=== PATIENT | female | born 1950 | race Caucasian/White ===

== ENCOUNTER 2016-10-11 01:24 | Inpatient (IN) | payer OTHER, MEDICARE ==
[2016-10-11] VITALS (8 sets, daily range): BP systolic 103–191; BP diastolic 60–100; PULSE 72–97; RESP 16–26; TEMP 96.9–98.4; O2SAT 93–96
[~2016-10-11] VITALS: Ht 157.5 cm; Wt 68.4 kg
[~2016-10-11 01:24] MED LIST: ACET1CAP18 PO; ALBU6.7H INH; ALPR.25 PO; ASPI1TAB69 PO; HYOS0.128 PO; LEVO.05 PO; OXYGENTANK NAS.CANULA; PRED5PAK PO; UMEC1AER INH; ZITH250T PO; ZOLO100T PO
[2016-10-11] MEDS ORDERED: SODIUM CHLORIDE 0.9% FLUSH 10 ML FLUSH IVF PRN ×3 (01:45→03:15)
[2016-10-11] MEDS: RESP: ALBUTEROL 2.5 MG/IPRATROPIUM 0.5 MG NEB (SCH) INH ×2 (01:54→02:16)
--- NOTE | 2016-10-11 01:58 | PD ---
HPI Chief Complaint: GI Complaint Time Seen by Provider: 01:40 Travel History International Travel<30 days: No Contact w/Intl Traveler<30days: No Traveled to known affect area: No History of Present Illness HPI 66-year-old female presents to the emergency department by private transportation for complaint of rectal bleeding. Patient reportedly noted blood on her bed clothing as well as her bedding and onto the floor reportedly noted with ambulation. No rectal pain no abdominal pain reported. Patient does have significant COPD and does complain of shortness of breath. Patient is supposed to be on supplemental oxygen at all times for presents without nasal cannula supplemental oxygen. No report of near-syncope or syncope chest pain sweats nausea vomiting or abdominal pain. No recent febrile illness. PFSH Past Medical History Narrative Medical PE COPD hypertension hypothyroidism sinus surgery, positive alcohol use, nursing notes reviewed Hx Anticoagulant Therapy: Yes (Baby aspirin) Arthritis: Yes (DJD) Anxiety: Yes Depression: No Cancer: No Cardiovascular Problems: Yes ( recent P.E. left lung) Chemotherapy: No COPD: Yes Diabetes: No Diminished Hearing: No Endocrine: No Hypertension: Yes Immune Disorder: No Implanted Vascular Access Dvce: No Musculoskeletal: Yes Neurologic: No Psychiatric: No Reproductive: No Respiratory: Yes (COPD) Radiation Therapy: No Thyroid Disease: Yes PNEUMOCCOCAL Vaccine (Year): 1 Menopausal: Yes : 2 Para: 2 Past Surgical History Neurologic Surgery: Yes (SINUS) Other Surgery: Yes (SINUS SURGERY; FATTY TUMOR REMOVED FROM LEFT BREAST) Social History Alcohol Use: Yes (BLOODY SAL AT NIGHT) Tobacco Use: No (PT STOPPED 9 DAYS AGO) Substance Use: No Allergies-Medications (Allergen,Severity, Reaction): Coded Allergies: Codeine (Verified Adverse Reaction, Mild, NAUSEA, 10/11/16) Reported Meds & Prescriptions Reported Meds & Active Scripts Active Prednisone (21) 5 mg tab Dose Pack (Prednisone) 5 Mg Dspk 5 Mg PO DIRECTED Oxygen tank (Oxygen) 1 Ea Tank 2 Liter CRISTA.CANULA CONTINUOUS Oxygen Concentrator Portable Gaseous 2 L/min via Nasal Cannula Continuous For 99 months Xanax (Alprazolam) 0.25 Mg Tab 0.25 Mg PO Q8H PRN Reported Claritin (Loratadine) 10 Mg Cap 10 Mg PO DAILY Naprosyn (Naproxen) 500 Mg Tab 500 Mg PO DAILY Aspirin 81 Mg Chew 81 Mg CHEW DAILY Proventil Hfa 6.7 GM Inh (Albuterol Sulfate) 90 Mcg/Act Aer 2 Puff INH Q4H PRN Anoro Ellipta Inh (Umeclidinium/Vilanterol) 62.5-25 Mcg/Act Aero 1 Puff INH DAILY Zoloft (Sertraline HCl) 100 Mg Tab 100 Mg PO DAILY Synthroid (Levothyroxine Sodium) 50 Mcg Tab 50 Mcg PO DAILY Review of Systems Except as stated in HPI: all other systems reviewed are Neg General / Constitutional: No: Fever, Chills HENT: No: Congestion Cardiovascular: No: Chest Pain or Discomfort Respiratory: Positive: Cough, Shortness of Breath, Wheezing Gastrointestinal: Positive: Hematochezia, No: Nausea, Vomiting, Abdominal Pain Genitourinary: No: Dysuria, Flank Pain Musculoskeletal: No: Myalgias, Arthralgias Skin: No Rash Neurologic: Positive: Weakness, No: Dizziness, Syncope, Focal Abnormalities, Coordination Problem Psychiatric: Positive: Anxiety Hematologic/Lymphatic: Positive: Easy Bruising Physical Exam Narrative GENERAL: Well-developed well-nourished female in mild respiratory distress SKIN: Warm and dry. HEAD: Normocephalic. EYES: No scleral icterus. No injection or drainage. NECK: Supple, trachea midline. No JVD or lymphadenopathy. CARDIOVASCULAR: Regular rate and rhythm without murmurs, gallops, or rubs. RESPIRATORY: Breath sounds equal bilaterally with diffuse wheezing. No accessory muscle use. GASTROINTESTINAL: Abdomen soft, non-tender, nondistended. Rectal exam: Multiple prolapsed non-thrombosed hemorrhoids scant amount of fresh heme no fissure no abrasion no tear stool in rectal vault MUSCULOSKELETAL: No cyanosis, or edema. BACK: Nontender without obvious deformity. No CVA tenderness. Data Data Last Documented VS Vital Signs Date Time Temp Pulse Resp B/P Pulse Ox O2 Delivery O2 Flow Rate FiO2 10/11/16 02:01 93 Nasal Cannula 2.50 10/11/16 01:50 98.4 26 10/11/16 01:50 72 103/65 Orders Complete Blood Count With Diff (10/11/16 01:40) Comprehensive Metabolic Panel (10/11/16 01:40) B-Type Natriuretic Peptide (10/11/16 01:40) Act Partial Throm Time (Ptt) (10/11/16 01:40) Prothrombin Time / Inr (Pt) (10/11/16 01:40) Magnesium (Mg) (10/11/16 01:40) Ckmb (Isoenzyme) Profile (10/11/16 01:40) Troponin I (10/11/16 01:40) Urinalysis - C+S If Indicated (10/11/16 01:40) Iv Access Insert/Monitor (10/11/16 01:40) Electrocardiogram (10/11/16 01:40) Ecg Monitoring (10/11/16 01:40) Oximetry (10/11/16 01:40) Oxygen Administration (10/11/16 01:40) Chest, Single Ap (10/11/16 01:40) Sodium Chloride 0.9% Flush (Ns Flush) (10/11/16 01:45) Albuterol-Ipratropium Neb (Duoneb Neb) (10/11/16 01:45) Alcohol (Ethanol) (10/11/16 01:40) Type And Screen (10/11/16 01:40) Sodium Chloride 0.9% Flush (Ns Flush) (10/11/16 01:45) Pantoprazole Inj (Protonix Inj) (10/11/16 02:30) Methylprednisolone So Succ Inj (Solumedr (10/11/16 02:30) CKMB (10/11/16 02:00) CKMB% (10/11/16 02:00) Thiamine Inj (Thiamine Inj) (10/11/16 03:00) Albuterol-Ipratropium Neb (Duoneb Neb) (10/11/16 03:00) Alprazolam (Xanax) (10/11/16 03:15) Aspirin Chew (Aspirin Chew) (10/11/16 09:00) Levothyroxine (Synthroid) (10/11/16 09:00) Naproxen (Naprosyn) (10/11/16 09:00) Sertraline (Zoloft) (10/11/16 09:00) Admit Order (Ed Use Only) (10/11/16 ) ^ Saline Lock (10/11/16 03:02) Resp Oxygen Crista C Titrat 1-4 L (10/11/16 ) Notify Dr: Other (10/11/16 03:02) Sodium Chloride 0.9% Flush (Ns Flush) (10/11/16 09:00) Sodium Chloride 0.9% Flush (Ns Flush) (10/11/16 03:15) Consult Gastroenterology (10/11/16 ) Methylprednisolone So Succ Inj (Solumedr (10/11/16 06:00) Albuterol-Ipratropium Neb (Duoneb Neb) (10/11/16 08:00) Albuterol-Ipratropium Neb (Duoneb Neb) (10/11/16 03:15) Alcohol Withdrawal Asmt-Ciwa ONCE (10/11/16 03:04) Flumazenil Inj (Romazicon Inj) (10/11/16 03:15) Lorazepam (Ativan) (10/11/16 03:15) Lorazepam Inj (Ativan Inj) (10/11/16 03:15) Lorazepam (Ativan) (10/11/16 03:15) Lorazepam Inj (Ativan Inj) (10/11/16 03:15) Lorazepam Inj (Ativan Inj) (10/11/16 03:15) Lorazepam Inj (Ativan Inj) (10/11/16 03:15) Albuterol Neb (Albuterol Neb) (10/11/16 03:15) Labs Laboratory Tests Test 10/11/16 10/11/16 02:00 02:30 White Blood Count 9.5 TH/MM3 Red Blood Count 4.22 MIL/MM3 Hemoglobin 13.8 GM/DL Hematocrit 41.7 % Mean Corpuscular Volume 98.6 FL Mean Corpuscular Hemoglobin 32.6 PG Mean Corpuscular Hemoglobin 33.1 % Concent Red Cell Distribution Width 13.4 % Platelet Count 222 TH/MM3 Mean Platelet Volume 8.7 FL Neutrophils (%) (Auto) 56.6 % Lymphocytes (%) (Auto) 25.9 % Monocytes (%) (Auto) 9.9 % Eosinophils (%) (Auto) 7.0 % Basophils (%) (Auto) 0.6 % Neutrophils # (Auto) 5.3 TH/MM3 Lymphocytes # (Auto) 2.5 TH/MM3 Monocytes # (Auto) 0.9 TH/MM3 Eosinophils # (Auto) 0.7 TH/MM3 Basophils # (Auto) 0.1 TH/MM3 CBC Comment DIFF FINAL Differential Comment Prothrombin Time 10.5 SEC Prothromb Time International 1.0 RATIO Ratio Activated Partial 32.4 SEC Thromboplast Time Sodium Level 142 MEQ/L Potassium Level 3.5 MEQ/L Chloride Level 104 MEQ/L Carbon Dioxide Level 29.1 MEQ/L Anion Gap 9 MEQ/L Blood Urea Nitrogen 20 MG/DL Creatinine 0.62 MG/DL Estimat Glomerular Filtration 96 ML/MIN Rate Random Glucose 96 MG/DL Calcium Level 9.4 MG/DL Magnesium Level 1.7 MG/DL Total Bilirubin 0.2 MG/DL Aspartate Amino Transf 16 U/L (AST/SGOT) Alanine Aminotransferase 17 U/L (ALT/SGPT) Alkaline Phosphatase 91 U/L Total Creatine Kinase 154 U/L Creatine Kinase MB 3.1 NG/ML Troponin I LESS THAN 0.02 NG/ML Total Protein 8.0 GM/DL Albumin 4.0 GM/DL Ethyl Alcohol Level 234 MG/DL Urine Color STRAW Urine Turbidity CLEAR Urine pH 5.5 Urine Specific [place] 1.004 Urine Protein NEG mg/dL Urine Glucose (UA) NEG mg/dL Urine Ketones NEG mg/dL Urine Occult Blood LARGE Urine Nitrite NEG Urine Bilirubin NEG Urine Leukocyte Esterase TRACE Urine RBC 0-3 /hpf Urine WBC 0-2 /hpf Urine Squamous Epithelial 0-5 /hpf Cells Urine Bacteria RARE /hpf Microscopic Urinalysis Comment CULT NOT INDICATED MDM Medical Decision Making Medical Screen Exam Complete: Yes Emergency Medical Condition: Yes Medical Record Reviewed: Yes Interpretation(s) EKG normal sinus rhythm rate [address] elevation or injury pattern age- indeterminate QS septally alcohol: 234, elevated CBC & BMP Diagram 10/11/16 02:00 Vital Signs Date Time Temp Pulse Resp B/P Pulse Ox O2 Delivery O2 Flow Rate FiO2 10/11/16 02:01 93 Nasal Cannula 2.50 10/11/16 01:50 98.4 26 10/11/16 01:50 95 Nasal Cannula 2 10/11/16 01:50 98.4 72 16 103/65 95 Nasal Cannula 2 10/11/16 01:50 72 26 95 Nasal Cannula 2 10/11/16 01:50 98.4 72 26 103/65 95 Nasal Cannula 2 ck: 154, not elevated troponin I: Less than 0.02, not elevated Differential Diagnosis Dyspnea, exacerbation COPD, anemia, GI bleed, AVM, ACS, pneumonia, hemorrhoidal bleeding, alcohol use, electrolyte disturbance Narrative Course Patient report of fresh rectal bleeding may be related to lower GI tract bleeding including prolapsed hemorrhoids; patient with exacerbation of COPD requiring updraft treatments 2 due to diffuse expiratory wheezing: Stat hemoglobin hematocrit ordered for report of large amount of blood loss rectally at home. EKG shows no acute injury pattern change. Serum alcohol level will be checked and patient will be administered thiamine. PCP: Dr Quinn; GI: Dr Freeman Critical Care Narrative Aggregate critical care time was 35 minutes. Time to perform other separately billable procedures was not included in the critical care time. My time did not include minutes spent treating any other patients simultaneously or on activities that did not directly contribute to the patient's treatment. The services I provided to this patient were to treat and/or prevent clinically significant deterioration that could result in: Respiratory failure, hemorrhage , I provided critical care services requiring my management, as noted below: Chart data review, documentation time, medication orders and management, vital sign assessments/reviewing monitor data, ordering and reviewing lab tests, ordering and interpreting/reviewing x-rays and diagnostic studies, care of the patient and discussion of the patient with the admitting physicians. Procedures EKG Prior to Arrival: No HemaPrompt Point of Care Internal Pos. & Neg. Controls: Passed Fecal Specimen Occult Blood: Positive Physician Communication Physician Communication call placed to [facility] service; discussed with Dr Driver requesting INPT admission Diagnosis Primary Impression: COPD exacerbation Additional Impressions: Rectal bleeding Alcohol use Hemorrhoids Qualified Code: K64.9 - Hemorrhoids, unspecified hemorrhoid type Admitting Information Admitting Physician Requests: Admit Sana Lopez MD Oct 11, 2016 01:58
--- NOTE | 2016-10-11 02:08 | RADHPO ---
EXAM DATE/TIME: 10/11/2016 01:43 [facility] COMPARISON: CHEST SINGLE AP, April 21, 2016, 21:31. INDICATIONS : Shortness of breath. MEDICAL HISTORY : Hypertension. Chronic obstructive pulmonary disease. Pulmonary embolism. SURGICAL HISTORY : None. ENCOUNTER: Initial ACUITY: 1 day PAIN SCORE: 0/10 LOCATION: Bilateral chest FINDINGS: The lungs are clear without infiltrate, nodule, or mass. There is no appreciable pleural effusion fo r technique. Heart and mediastinum are unremarkable. CONCLUSION: No acute cardiopulmonary disease. Raúl Stover MD on October 11, 2016 at 2:05 Board Certified Radiologist. This report was verified electronically.
[2016-10-11 02:13] LABS: AUTOMATED NEUTROPHIL # 5.3 TH/MM3 (1.8-7.7); BASOPHIL # 0.1 TH/MM3 (0-0.2); BASOPHIL % 0.6 % (0.0-2.0); EOSINOPHIL # 0.7 TH/MM3 (0-0.4); HEMATOCRIT 41.7 % (35.0-46.0); HEMO FLAGS DIFF FINAL; LYMPH % 25.9 % (9.0-44.0); LYMPHOCYTE # 2.5 TH/MM3 (1.0-4.8); MEAN CELL VOLUME 98.6 FL (80.0-100.0); MEAN CORPUSCULAR HEMOGLOBIN 32.6 PG (27.0-34.0); MEAN CORPUSCULAR HGB CONC 33.1 % (32.0-36.0); MONO % 9.9 % (0.0-8.0); NEUT % 56.6 % (16.0-70.0); PLATELET COUNT 222 TH/MM3 (150-450); RED BLOOD COUNT 4.22 MIL/MM3 (4.00-5.30); RED CELL DISTRIBUTION WIDTH 13.4 % (11.6-17.2); WHITE BLOOD COUNT 9.5 TH/MM3 (4.0-11.0)
[2016-10-11] MEDS ORDERED: NAPR500 PO (02:19)
[2016-10-11] MEDS ORDERED: CLAR10CA3 PO (02:19)
[2016-10-11] MEDS ORDERED: ASPI81CH CHEW (02:19)
[2016-10-11 02:28] LABS: CHLORIDE 104 MEQ/L (98-107); POTASSIUM 3.5 MEQ/L (3.5-5.1); SODIUM (NA) 142 MEQ/L (136-145)
[2016-10-11] MEDS ORDERED: methylPREDNISolone SOD SUCC 125 MG/2 ML VIAL IV PUSH ONE (02:30)
[2016-10-11] MEDS ORDERED: PANTOPRAZOLE SODIUM 40 MG VIAL IV PUSH ONE (02:30)
[2016-10-11 02:32] LABS: ANION GAP 9 MEQ/L (5-15); BICARBONATE 29.1 MEQ/L (21.0-32.0); BLOOD UREA NITROGEN 20 MG/DL (7-18); MAGNESIUM 1.7 MG/DL (1.5-2.5)
[2016-10-11 02:33] LABS: APTT (PATIENT) 32.4 SEC (24.3-30.1); PROTHROMBIN TIME - PATIENT 10.5 SEC (9.8-11.6)
[2016-10-11 02:35] LABS: ALT (GPT) 17 U/L (10-53); AST (GOT) 16 U/L (15-37); GLOMERULAR FILTRATION RATE 96 ML/MIN (>89)
[2016-10-11 02:36] LABS: TOTAL BILIRUBIN ADULT 0.2 MG/DL (0.2-1.0)
[2016-10-11 02:37] LABS: ALKALINE PHOSPHATASE 91 U/L (45-117); CREATINE KINASE 154 U/L (26-192)
[2016-10-11 02:38] LABS: BLOOD, URINE LARGE (NEG); GLUCOSE,URINE NEG (NEG); KETONE, URINE NEG (NEG); NITRITE,URINE NEG (NEG); PH, URINE 5.5 (5.0-8.5)
[2016-10-11 02:52] LABS: RBC, URINE 0-3 /hpf (0-3); URINE COLOR STRAW (YELLW/STRAW); WBC, URINE 0-2 /hpf (0-5)
[2016-10-11 02:54] LABS: BACTERIA, URINE RARE /hpf; SQUAMOUS EPITHELIAL CELL URINE 0-5 /hpf (0-5)
[2016-10-11 02:55] LABS: COMMENT (UR) CULT NOT INDICATED; CULTURE IF INDICATED CULT NOT INDICATED
[2016-10-11] MEDS ORDERED: RESP: ALBUTEROL 2.5 MG/IPRATROPIUM 0.5 MG NEB (SCH) NEB ONE (03:00)
[2016-10-11] MEDS ORDERED: THIAMINE INJ 100 MG in SODIUM CHLORIDE 0.9% INJ 100 ML IV ONE (03:00)
[2016-10-11 03:02] LABS: CKMB 3.1 NG/ML (0.5-3.6)
[2016-10-11] MEDS ORDERED: FLUMAZENIL 0.5 MG/5 ML VIAL IV PUSH PRN ×2 (03:15)
[2016-10-11] MEDS ORDERED: LORazepam 2 MG/ML VIAL IV PUSH PRN ×8 (03:15)
[2016-10-11] MEDS ORDERED: ALPRAZolam 0.25 MG TAB PO PRN (03:15)
[2016-10-11] MEDS ORDERED: RESP: ALBUTEROL 2.5 MG/3 ML NEB (PRN) NEB (03:15)
[2016-10-11] MEDS ORDERED: LORazepam 1 MG TAB PO PRN ×2 (03:15)
[2016-10-11] MEDS ORDERED: RESP: ALBUTEROL 2.5 MG/IPRATROPIUM 0.5 MG NEB (PRN) NEB (03:15)
[2016-10-11] MEDS ORDERED: LORazepam 2 MG TAB PO PRN ×2 (03:15)
[2016-10-11] MEDS ORDERED: SODIUM CHLORIDE 0.9% FLUSH 10 ML FLUSH IV FLUSH PRN (03:15)
[2016-10-11] MEDS ORDERED: ONDANSETRON HCL 4 MG/2 ML VIAL IV PRN (03:15)
[2016-10-11] MEDS ORDERED: PANTOPRAZOLE SODIUM 40 MG VIAL IV PUSH SCH (05:00)
[2016-10-11] MEDS ORDERED: methylPREDNISolone SOD SUCC 40 MG/1 ML VIAL IV PUSH SCH (06:00)
[2016-10-11] MEDS ORDERED: LEVOTHYROXINE SODIUM 50 MCG TAB PO SCH (06:00)
[2016-10-11 07:22] LABS: AUTOMATED NEUTROPHIL # 5.4 TH/MM3 (1.8-7.7); BASOPHIL % 0.4 % (0.0-2.0); EOSINOPHIL # 0.1 TH/MM3 (0-0.4); HEMATOCRIT 37.9 % (35.0-46.0); HEMO FLAGS DIFF FINAL; LYMPH % 7.5 % (9.0-44.0); LYMPHOCYTE # 0.4 TH/MM3 (1.0-4.8); MEAN CELL VOLUME 97.1 FL (80.0-100.0); MEAN CORPUSCULAR HEMOGLOBIN 32.1 PG (27.0-34.0); MONO % 1.5 % (0.0-8.0); NEUT % 89.6 % (16.0-70.0); PLATELET COUNT 217 TH/MM3 (150-450); RED BLOOD COUNT 3.91 MIL/MM3 (4.00-5.30)
[2016-10-11] MEDS: RESP: ALBUTEROL 2.5 MG/IPRATROPIUM 0.5 MG NEB (SCH) NEB ×3 (07:36→15:36)
--- NOTE | 2016-10-11 08:17 | HHI.HP ---
[facility] Primary Care Physician Kailey Quinn MD Admission Diagnosis Exac COPD; rectal bleeding; alcohol use/ingestion Diagnoses: (1) Chronic obstructive pulmonary disease (2) Rectal bleeding Chief Complaint: Dyspnea, rectal bleeding Travel History International Travel<30 Days: No Contact w/Intl Traveler <30 Da: No Traveled to Known Affected Are: No History of Present Illness The patient is a 66-year-old female with history of COPD on chronic home oxygen who presented to the emergency department with worsening shortness of breath over the last few days. She states that she has been using her oxygen intermittently, mostly at night. She uses 2.5 L per nasal cannula. She states that she does have oxygen at home and does have a portable oxygen tank, which she did not bring with her to the hospital. She also reports that over the past couple days she has had bright red blood per rectum. She has had this in the past. She used to see a GI physician, but has not seen him in a number of years. She reports cough that is productive of sputum in the mornings, but nonproductive the rest of the day. Denies fever, chills, night sweats. States that she does feel better this morning. Review of Systems Constitutional: DENIES: Fever, Chills, Night Sweats Eyes: DENIES: Blurred vision, Vision loss Ears, nose, mouth, throat: DENIES: Hearing loss Respiratory: COMPLAINS OF: Cough, Sputum production, Shortness of breath, DENIES: Wheezing Cardiovascular: DENIES: Chest pain, Palpitations, Dyspnea on Exertion, Lower Extremity Edema Gastrointestinal: DENIES: Abdominal pain, Constipation, Diarrhea, Nausea, Vomiting Genitourinary: DENIES: Urinary frequency, Urinary incontinence, Urgency, Hematuria, Dysuria, Nocturia Musculoskeletal: DENIES: Joint pain, Muscle aches Integumentary: DENIES: Pruritus, Rash Hematologic/lymphatic: DENIES: Bruising Neurologic: DENIES: Headache Past Family Social History Past Medical History Chronic obstructive pulmonary disease Arthritis History of pulmonary emboli Past Surgical History Tubal ligation Right hip replacement Allergies: Coded Allergies: Codeine (Verified Adverse Reaction, Mild, NAUSEA, 10/11/16) Family History Father had lung cancer. Social History The patient has been smoking 1 pack per day for many years. She has been trying to quit smoking and has recently started using nicotine patch. She states that her still smokes. She reports that over the past month she has been drinking "heavily". Denies illicit drug use. Physical Exam Vital Signs Vital Signs Date Time Temp Pulse Resp B/P Pulse Ox O2 Delivery O2 Flow Rate FiO2 10/11/16 04:14 96.9 83 20 119/78 94 10/11/16 03:17 81 24 105/60 96 Nasal Cannula 2 10/11/16 03:00 67 24 95 2 10/11/16 02:01 93 Nasal Cannula 2.50 10/11/16 01:50 98.4 26 10/11/16 01:50 95 Nasal Cannula 2 10/11/16 01:50 98.4 72 16 103/65 95 Nasal Cannula 2 10/11/16 01:50 72 26 95 Nasal Cannula 2 10/11/16 01:50 98.4 72 26 103/65 95 Nasal Cannula 2 Physical Exam GENERAL: Elderly female in no acute distress. HEENT: Normocephalic, atraumatic. Pupils equal, round and reactive. Extraocular movements intact. No scleral icterus. No injection or drainage. Oropharynx is clear. Mucous membranes are moist. Poor dentition. CARDIOVASCULAR: Regular rate and rhythm without murmurs, gallops, or rubs. RESPIRATORY: Diffuse wheeze. Breathing is non-labored. GASTROINTESTINAL: Abdomen soft, non-tender, nondistended. EXTREMITIES: No lower extremity edema. No calf tenderness. PSYCH: Alert and oriented x 3. Laboratory Laboratory Tests Test 10/11/16 10/11/16 10/11/16 02:00 02:30 07:10 White Blood Count 9.5 6.0 Red Blood Count 4.22 3.91 Hemoglobin 13.8 12.5 Hematocrit 41.7 37.9 Mean Corpuscular Volume 98.6 97.1 Mean Corpuscular Hemoglobin 32.6 32.1 Mean Corpuscular Hemoglobin 33.1 33.0 Concent Red Cell Distribution Width 13.4 14.0 Platelet Count 222 217 Mean Platelet Volume 8.7 8.8 Neutrophils (%) (Auto) 56.6 89.6 Lymphocytes (%) (Auto) 25.9 7.5 Monocytes (%) (Auto) 9.9 1.5 Eosinophils (%) (Auto) 7.0 1.0 Basophils (%) (Auto) 0.6 0.4 Neutrophils # (Auto) 5.3 5.4 Lymphocytes # (Auto) 2.5 0.4 Monocytes # (Auto) 0.9 0.1 Eosinophils # (Auto) 0.7 0.1 Basophils # (Auto) 0.1 0.0 CBC Comment DIFF FINAL DIFF FINAL Differential Comment Prothrombin Time 10.5 Prothromb Time International 1.0 Ratio Activated Partial 32.4 Thromboplast Time Sodium Level 142 Potassium Level 3.5 Chloride Level 104 Carbon Dioxide Level 29.1 Anion Gap 9 Blood Urea Nitrogen 20 Creatinine 0.62 Estimat Glomerular Filtration 96 Rate Random Glucose 96 Calcium Level 9.4 Phosphorus Level 3.2 Magnesium Level 1.7 Total Bilirubin 0.2 Aspartate Amino Transf 16 (AST/SGOT) Alanine Aminotransferase 17 (ALT/SGPT) Alkaline Phosphatase 91 Total Creatine Kinase 154 Creatine Kinase MB 3.1 Troponin I LESS THAN 0.02 B-Type Natriuretic Peptide 40 Total Protein 8.0 Albumin 4.0 Ethyl Alcohol Level 234 Blood Type O POSITIVE Antibody Screen NEGATIVE Blood Bank Comment Urine Color STRAW Urine Turbidity CLEAR Urine pH 5.5 Urine Specific [place] 1.004 Urine Protein NEG Urine Glucose (UA) NEG Urine Ketones NEG Urine Occult Blood LARGE Urine Nitrite NEG Urine Bilirubin NEG Urine Leukocyte Esterase TRACE Urine RBC 0-3 Urine WBC 0-2 Urine Squamous Epithelial 0-5 Cells Urine Bacteria RARE Microscopic Urinalysis Comment CULT NOT INDICATED Result Diagram: 10/11/16 0710 10/11/16 0200 Imaging Last Impressions Chest X-Ray 10/11/16 0140 Signed Impressions: Service Date/Time: Tuesday, October 11, 2016 01:43 - CONCLUSION: No acute cardiopulmonary disease. Raúl Stover MD Assessment and Plan Problem List: (1) Rectal bleeding ICD Code: K62.5 Status: Acute (2) Tobacco abuse ICD Code: Z72.0 Status: Chronic (3) Chronic obstructive pulmonary disease ICD Code: J44.9 Status: Chronic Assessment and Plan 1. Rectal bleeding: Patient's hemoglobin has remained stable. Gastroenterology consultation is pending. Likely secondary to hemorrhoids. 2. COPD with mild exacerbation: Patient is on chronic home oxygen, but only uses it intermittently. She has been referred by her PCP to a professor of languages, but has not yet made an appointment. Oxygen saturation stable on 2 L nasal cannula. Continue bronchodilators, steroids, supplemental oxygen. 3. Alcohol abuse: Patient reports drinking heavily for the past month or so. Continue thiamine supplementation. Monitor for withdrawal symptoms. [facility] protocol ordered. 4. Hypothyroidism: Continue Synthroid. 5. DVT prophylaxis: ANNMARIE Art. Awaiting gastroenterology recommendations regarding rectal bleed. If oxygen stays stable on 2 L per nasal cannula, and patient is cleared for discharge by GI, will consider discharge home later today. Triston Tipton MD Oct 11, 2016 08:17
[2016-10-11] MEDS ORDERED: NAPROXEN 500 MG TAB PO SCH (09:00)
[2016-10-11] MEDS ORDERED: FOLIC ACID 1 MG TAB PO SCH (09:00)
[2016-10-11] MEDS ORDERED: MULTIVITAMINS/MINERALS THERAPEUTIC TAB PO SCH (09:00)
[2016-10-11] MEDS ORDERED: SERTRALINE HCL 100 MG TAB PO SCH (09:00)
[2016-10-11] MEDS ORDERED: ASPIRIN 81 MG CHEW TAB CHEW SCH (09:00)
[2016-10-11] MEDS ORDERED: SODIUM CHLORIDE 0.9% FLUSH 10 ML FLUSH IV FLUSH SCH ×2 (09:00)
--- NOTE | 2016-10-11 11:36 | EKG ---
Date Performed: 10/11/2016 Time Performed: 01:46:58 PTAGE: 66 years EKG: Sinus rhythm . Since previous tracing, no significant change noted Normal ECG PREVIOUS TRACING : 04/21/2016 21.08 DOCTOR: Osvaldo Waldron Interpretating Date/Time 10/11/2016 11:34:19
[2016-10-11] MEDS: methylPREDNISolone SOD SUCC 40 MG/1 ML VIAL IV PUSH SCH ×2 (11:39→14:00)
[2016-10-11] MEDS ORDERED: PRED5PAK PO (15:17)
--- NOTE | 2016-10-11 15:18 | HHI.DCPOC ---
Discharge Care Plan Diagnosis: (1) Chronic obstructive pulmonary disease (2) Rectal bleeding (3) Tobacco abuse (4) Alcohol use Goals to Promote Your Health * To prevent worsening of your condition and complications * To maintain your health at the optimal level Directions to Meet Your Goals Take your medications as prescribed Follow your dietary instruction Follow activity as directed Keep your appointments as scheduled Take your immunizations and boosters as scheduled If your symptoms worsen call your PCP, if no PCP go to Urgent Care Center or Emergency Room Smoking is Dangerous to Your Health. Avoid second hand smoke Call the 24-hour hour crisis hotline for domestic abuse at Triston Tipton MD Oct 11, 2016 15:18
--- NOTE | 2016-10-12 06:52 | MB ---
cc: DEE SMITH M.D. DATE OF CONSULTATION 10/11/2016 DATE OF 1950 REASON FOR REFERRAL Rectal bleeding Thank you for the consultation for this 66-year-old lady who has a significant history of COPD. The patient also drinks alcohol actively in large amounts. The patient came because of shortness of breath. The patient also complained of some bright red blood per rectum. She said she had that on and off. She was told that she had hemorrhoids. She used to see a GI doctor in the past, but not recently. The patient stated that she was dripping blood, but it stopped completely and she feels well this morning. REVIEW OF SYSTEMS All 12-point negative except HPI. ALLERGIES CODEINE FAMILY HISTORY Significant for lung cancer. SOCIAL HISTORY Positive for tobacco and that she quit and is using a nicotine patches and she drinks heavily. SURGERIES 1. Right hip replacement 2. Tubal ligation PAST MEDICAL HISTORY Significant for: 1. COPD 2. Pulmonary embolism 3. Arthritis MEDICATIONS Reviewed in the chart. PHYSICAL EXAMINATION Alert, oriented in no acute distress. VITAL SIGNS: Stable at this time. HEENT: Pupils are round and reactive to light. NECK: Supple. CHEST: Clear. CARDIAC: Regular rate and rhythm. ABDOMEN: Soft, nondistended, nondistended. Positive bowel sounds. EXTREMITIES: No edema, clubbing or cyanosis. NEUROLOGIC: Intact. PSYCHOLOGIC: Appropriate. RECTAL: The patient refused. LABORATORY DATA White count 6.0, hemoglobin 12.5, platelet 217, INR 1.0. Liver function tests are normal. Albumin 4.8. Alcohol level 234. Chest x-ray showed no acute abnormality. ASSESSMENT/PLAN This is a 66-year-old lady who has rectal bleeding, possible hemorrhoid, but cannot rule out other etiology. The patient adamant about not having any procedure done. She said, if anything, she will do it outpatient, but not inpatient. She feels that her symptoms are related to hemorrhoid. I advised her that this is possible, also cannot rule out other major problems such as malignancy, but the patient does not want to have any procedure done at this time. I told the patient that we can follow her as an outpatient. She needs to stop drinking alcohol completely or at least significantly reduce her intake and she said she will try that. The patient wants to go home this morning. We can follow with her as an outpatient. MD LIZBETH Aldridge/KACY /6:50 PM /6:49 AM
[2016-10-12] MEDS ORDERED: THIAMINE HCL 100 MG TAB PO SCH (09:00)
== END 2016-10-11 17:30 | disposition home or self-care (01) | DRG 378 ==
LOC: PHED 01:24 → OBSVTOIN 03:04 → INTOOBSV 03:04 → PHEDA 03:04 → PH3A 03:51
PROVIDERS: ADMIT Family Medicine; ATTEND Family Medicine
DX: K62.5 Hemorrhage of anus and rectum (principal); J44.1 Chronic obstructive pulmonary disease with (acute) exacerbation; Z99.81 Dependence on supplemental oxygen; F10.10 Alcohol abuse, uncomplicated; E03.9 Hypothyroidism, unspecified; K64.8 Other hemorrhoids; I10 Essential (primary) hypertension; Z72.0 Tobacco use; M19.90 Unspecified osteoarthritis, unspecified site; Y90.7 Blood alcohol level of 200-239 mg/100 ml; Z79.899 Other long term (current) drug therapy; Z79.82 Long term (current) use of aspirin; Z96.641 Presence of right artificial hip joint; Z86.711 Personal history of pulmonary embolism; Z80.1 Family history of malignant neoplasm of trachea, bronchus and lung
CPT/HCPCS: 71010; 80053; 80307; 81001; 82550; 82552; 82948; 83735; 83880; 84100; 84484; 85025; 85610; 85730; 86850; 86900; 86901; 93005; 94640; 94664; 96374; 96375; C9113; J2920; J2930; J3411

== ENCOUNTER 2016-11-19 15:57 | Emergency (ER) | payer MEDICARE, OTHER ==
[~2016-11-19] VITALS: Ht 154.9 cm; Wt 75.0 kg
[~2016-11-19 15:57] MED LIST changes: -ACET1CAP18 PO; -ASPI1TAB69 PO; +ASPI81CH CHEW; +CLAR10CA3 PO; -HYOS0.128 PO; +NAPR500 PO; -UMEC1AER INH; -ZITH250T PO
[2016-11-19 16:06] VITALS: BP 156/90; PULSE 85; RESP 22; TEMP 98.7; O2SAT 90
[2016-11-19 16:12] VITALS: BP 122/67; PULSE 77; RESP 22; O2SAT 93
[2016-11-19] MEDS: RESP: ALBUTEROL 2.5 MG/IPRATROPIUM 0.5 MG NEB (SCH) INH ×3 (16:14→16:27)
[2016-11-19] MEDS ORDERED: methylPREDNISolone SOD SUCC 125 MG/2 ML VIAL IVP ONE (16:15)
[2016-11-19] MEDS ORDERED: SODIUM CHLORIDE 0.9% FLUSH 10 ML FLUSH IVF PRN (16:15)
[2016-11-19 16:17] VITALS: O2SAT 93
[2016-11-19 16:28] LABS: AUTOMATED NEUTROPHIL # 7.2 TH/MM3 (1.8-7.7); BASOPHIL # 0.1 TH/MM3 (0-0.2); BASOPHIL % 0.6 % (0.0-2.0); EOSINOPHIL # 0.7 TH/MM3 (0-0.4); EOSINOPHIL % 7.3 % (0.0-4.0); HEMATOCRIT 39.5 % (35.0-46.0); HEMO FLAGS DIFF FINAL; LYMPH % 10.7 % (9.0-44.0); MEAN CELL VOLUME 96.8 FL (80.0-100.0); MEAN CORPUSCULAR HEMOGLOBIN 32.7 PG (27.0-34.0); MEAN CORPUSCULAR HGB CONC 33.7 % (32.0-36.0); MONO % 6.6 % (0.0-8.0); NEUT % 74.8 % (16.0-70.0); PLATELET COUNT 234 TH/MM3 (150-450); RED BLOOD COUNT 4.09 MIL/MM3 (4.00-5.30); RED CELL DISTRIBUTION WIDTH 13.8 % (11.6-17.2); WHITE BLOOD COUNT 9.6 TH/MM3 (4.0-11.0)
--- NOTE | 2016-11-19 16:32 | PD ---
HPI Chief Complaint: Respiratory Symptoms Time Seen by Provider: 16:09 Travel History International Travel<30 days: No Contact w/Intl Traveler<30days: No Traveled to known affect area: No History of Present Illness HPI 66 year-old woman, presents emergent department cleaning of shortness of breath is been worsening over the past 2 days. She's had wet cough that she feels like she is not able to cough up mucus up. She feels like she's been gasping in the morning. Symptoms been worsening over the past 2 days and today she was having significant symptoms they were not improved with her home bronchodilators. She's not had any fevers or chills. She does have little bit of chest heaviness. She otherwise had been feeling generally well and healthy. She is a history of COPD, she uses oxygen at night. No other complaints. History Past Medical History Narrative Medical COPD, on home oxygen at night Arthritis Hypothyroidism Influenza Vaccination: Yes PNEUMOCCOCAL Vaccine (Year): 1 Menopausal: Yes : 2 Para: 2 Social History Alcohol Use: Yes (BLOODY SAL AT NIGHT) Tobacco Use: Yes (2-3/day) Allergies-Medications (Allergen,Severity, Reaction): Coded Allergies: Codeine (Verified Adverse Reaction, Mild, NAUSEA, 11/19/16) Reported Meds & Prescriptions Reported Meds & Active Scripts Active Oxygen tank (Oxygen) 1 Ea Tank 2 Liter CRISTA.CANULA CONTINUOUS Oxygen Concentrator Portable Gaseous 2 L/min via Nasal Cannula Continuous For 99 months Reported Naprosyn (Naproxen) 500 Mg Tab 500 Mg PO DAILY Aspirin 81 Mg Chew 81 Mg CHEW DAILY Proventil Hfa 6.7 GM Inh (Albuterol Sulfate) 90 Mcg/Act Aer 2 Puff INH Q4H PRN Zoloft (Sertraline HCl) 100 Mg Tab 100 Mg PO DAILY Synthroid (Levothyroxine Sodium) 50 Mcg Tab 50 Mcg PO DAILY Review of Systems Except as stated in HPI: all other systems reviewed are Neg Physical Exam Narrative GENERAL: Well-appearing 66 year-old woman, no acute distress. SKIN: Focused skin assessment warm/dry. NECK: Trachea midline. No JVD. CARDIOVASCULAR: Regular rate and rhythm. No murmur appreciated. RESPIRATORY: Mild respiratory distress. Prominent expiratory wheezing and coarse breath sounds in the posterior lung vidal. GASTROINTESTINAL: Abdomen soft, non-tender, nondistended. Hepatic and splenic margins not palpable. MUSCULOSKELETAL: No obvious deformities. No edema. NEUROLOGICAL: Awake and alert. No obvious cranial nerve deficits. Motor grossly within normal limits. Normal speech. PSYCHIATRIC: Appropriate mood and affect; insight and judgment normal. Data Data Last Documented VS Vital Signs Date Time Temp Pulse Resp B/P Pulse Ox O2 Delivery O2 Flow Rate FiO2 11/19/16 17:10 85 20 124/59 90 Nasal Cannula 2 11/19/16 16:06 98.7 Orders Complete Blood Count With Diff (11/19/16 16:09) Comprehensive Metabolic Panel (11/19/16 16:09) B-Type Natriuretic Peptide (11/19/16 16:09) Magnesium (Mg) (11/19/16 16:09) Troponin I (11/19/16 16:09) Iv Access Insert/Monitor (11/19/16 16:09) Electrocardiogram (11/19/16 16:09) Ecg Monitoring (11/19/16 16:09) Oximetry (11/19/16 16:09) Oxygen Administration (11/19/16 16:09) Chest, Single Ap (11/19/16 16:09) Sodium Chloride 0.9% Flush (Ns Flush) (11/19/16 16:15) Methylprednisolone So Succ Inj (Solumedr (11/19/16 16:15) Albuterol-Ipratropium Neb (Duoneb Neb) (11/19/16 16:15) Azithromycin (Zithromax) (11/19/16 17:30) Labs Laboratory Tests Test 11/19/16 16:20 White Blood Count 9.6 TH/MM3 Red Blood Count 4.09 MIL/MM3 Hemoglobin 13.3 GM/DL Hematocrit 39.5 % Mean Corpuscular Volume 96.8 FL Mean Corpuscular Hemoglobin 32.7 PG Mean Corpuscular Hemoglobin 33.7 % Concent Red Cell Distribution Width 13.8 % Platelet Count 234 TH/MM3 Mean Platelet Volume 8.8 FL Neutrophils (%) (Auto) 74.8 % Lymphocytes (%) (Auto) 10.7 % Monocytes (%) (Auto) 6.6 % Eosinophils (%) (Auto) 7.3 % Basophils (%) (Auto) 0.6 % Neutrophils # (Auto) 7.2 TH/MM3 Lymphocytes # (Auto) 1.0 TH/MM3 Monocytes # (Auto) 0.6 TH/MM3 Eosinophils # (Auto) 0.7 TH/MM3 Basophils # (Auto) 0.1 TH/MM3 CBC Comment DIFF FINAL Differential Comment Sodium Level 142 MEQ/L Potassium Level 4.3 MEQ/L Chloride Level 106 MEQ/L Carbon Dioxide Level 30.1 MEQ/L Anion Gap 6 MEQ/L Blood Urea Nitrogen 17 MG/DL Creatinine 0.64 MG/DL Estimat Glomerular Filtration 92 ML/MIN Rate Random Glucose 97 MG/DL Calcium Level 8.9 MG/DL Magnesium Level 1.7 MG/DL Total Bilirubin 0.4 MG/DL Aspartate Amino Transf 15 U/L (AST/SGOT) Alanine Aminotransferase 15 U/L (ALT/SGPT) Alkaline Phosphatase 94 U/L Troponin I LESS THAN 0.02 NG/ML B-Type Natriuretic Peptide 46 PG/ML Total Protein 7.6 GM/DL Albumin 4.2 GM/DL [facility] Medical Decision Making Medical Screen Exam Complete: Yes Emergency Medical Condition: Yes Interpretation(s) My review of EKG: Normal sinus rhythm at a rate of 73, normal axis, normal intervals, no definite evidence of acute ischemia. My review of chest x-ray: No acute cardiopulmonary disease. LABS: CBC is unremarkable. CMP unremarkable Troponin negative BNP normal Differential Diagnosis URI, pneumonia, COPD exacerbation, ACS, other Narrative Course Medical decision making INITIAL: 66 year-old woman with what appears to be COPD exacerbation. She looks overall well. She is unavailable chest heaviness as well. We'll check EKG and troponin. We'll check x-ray for evidence pneumonia. Bronchodilators and steroids, reassess. FINAL: Patient feeling much improved. Discussed admission for observation. Patient would rather be at home if possible. He did a walking test. Her ambulatory sats were about 88%. She does have oxygen at home. She looks well. Don't think this is cardiac. We'll treat for COPD exacerbation, close outpatient follow-up. Diagnosis Primary Impression: Chronic obstructive pulmonary disease Additional Instructions: Continue to abstain from cigarettes. Take antibiotics as prescribed. Take prednisone as prescribed. Continue albuterol every 4 hours until symptoms resolve. Follow-up with your primary doctor in 1-2 days. Return to the emergency department for any new or worsening symptoms. Med/Other Pt SpecificInfo: Prescription(s) given Scripts Prednisone (Deltasone)20 Mg Tab40 Mg PO DAILY 10 Days Prov:Elias Chavira MD 11/19/16 Azithromycin 250 Mg [id number] Mg PO DAILY 4 Days Prov:Elias Chavira MD 11/19/16 Albuterol Neb 2.5 Mg/3 Ml Neb2.5 Mg NEB Q4HR NEB PRN (SHORTNESS OF BREATH) #60 NEBULE Prov:Elias Chavira MD 11/19/16 Disposition: 01 DISCHARGE HOME Condition: Stable Elias Chavira MD Nov 19, 2016 16:32
--- NOTE | 2016-11-19 16:33 | RADRPT ---
EXAM DATE/TIME: 11/19/2016 16:23 [facility] COMPARISON: CHEST SINGLE AP, October 11, 2016, 1:43. INDICATIONS : Short of breath. MEDICAL HISTORY : None. SURGICAL HISTORY : None. ENCOUNTER: Initial ACUITY: 2 days PAIN SCORE: 7/10 LOCATION: Bilateral chest FINDINGS: A single view of the chest demonstrates minimal bibasilar densities. Heart normal in size. The cardio mediastinal contours are unremarkable. Osseous structures are intact. CONCLUSION: Bibasilar atelectasis. Brant Lopez MD on November 19, 2016 at 16:31 Board Certified Radiologist. This report was verified electronically.
[2016-11-19 16:49] LABS: CHLORIDE 106 MEQ/L (98-107); POTASSIUM 4.3 MEQ/L (3.5-5.1); SODIUM (NA) 142 MEQ/L (136-145)
[2016-11-19 16:53] LABS: ANION GAP 6 MEQ/L (5-15); BICARBONATE 30.1 MEQ/L (21.0-32.0); BLOOD UREA NITROGEN 17 MG/DL (7-18); MAGNESIUM 1.7 MG/DL (1.5-2.5)
[2016-11-19 16:56] LABS: ALT (GPT) 15 U/L (10-53); AST (GOT) 15 U/L (15-37); GLOMERULAR FILTRATION RATE 92 ML/MIN (>89)
[2016-11-19 16:58] LABS: TOTAL BILIRUBIN ADULT 0.4 MG/DL (0.2-1.0)
[2016-11-19 16:59] LABS: ALKALINE PHOSPHATASE 94 U/L (45-117)
[2016-11-19 17:10] VITALS: BP 124/59; PULSE 85; RESP 20; O2SAT 90
[2016-11-19] MEDS ORDERED: PRED-503 PO (17:24)
[2016-11-19] MEDS ORDERED: ALBU0.08 NEB (17:24)
[2016-11-19] MEDS ORDERED: AZIT250T3 PO (17:24)
[2016-11-19] MEDS ORDERED: AZITHROMYCIN 250 MG TAB PO ONE (17:30)
[2016-11-19 17:34] VITALS: BP 124/68
--- NOTE | 2016-11-20 12:13 | EKG ---
Date Performed: 11/19/2016 Time Performed: 16:20:04 PTAGE: 66 years EKG: Sinus rhythm Since previous tracing, no significant change noted NORMAL ECG PREVIOUS TRACING : 10/11/2016 01.46.58 DOCTOR: Praful Brothers Interpretating Date/Time 11/20/2016 12:12:49
== END 2016-11-19 17:34 | disposition home or self-care (01) ==
LOC: PHED 15:57
DX: J44.9 Chronic obstructive pulmonary disease, unspecified (principal); E03.9 Hypothyroidism, unspecified; F17.200 Nicotine dependence, unspecified, uncomplicated; Z79.899 Other long term (current) drug therapy
CPT/HCPCS: 71010; 80053; 83735; 83880; 84484; 85025; 93005; 94640; 94664; 96374; 99285; J2930

== ENCOUNTER 2017-09-10 08:02 | Inpatient (IN) | payer OTHER, MEDICARE ==
[~2017-09-10] VITALS: Ht 170.2 cm; Wt 84.5 kg
[2017-09-10] VITALS (31 sets, daily range): BP systolic 61–204; BP diastolic 36–108; PULSE 63–112; RESP 12–39; TEMP 97.5–100.5; O2SAT 58–100
[~2017-09-10 08:02] MED LIST changes: +ALBU0.08 NEB; -ALPR.25 PO; +ASPI-516 CHEW; -ASPI81CH CHEW; +AZIT250T3 PO; -CLAR10CA3 PO; +PRED-503 PO; -PRED5PAK PO
--- NOTE | 2017-09-10 08:40 | PD ---
HPI Chief Complaint: Code Blue Time Seen by Provider: 08:19 Travel History International Travel<30 days: No Contact w/Intl Traveler<30days: No Traveled to known affect area: No History of Present Illness HPI 67-year-old female brought in by ambulance post cardiac arrest. Apparently the patient has history of COPD. According to EMS the patient had increasing shortness of breath this morning and then became unresponsive. Her called 911 and when paramedics arrived noticed that the patient was in PEA cardiac arrest. CPR was initiated and Combi tube was placed. Prior to arrival the patient had received 4 rounds of epinephrine and 2 amps of sodium bicarb with ROSC in the field. Upon arrival to the emergency department the patient had palpable carotid pulses. Shortly after arrival, Combitube was replaced with endotracheal tube, and after intubation the patient was noted to be pulseless. CPR was initiated, the patient was provided 1 amp of epinephrine and 1 amp of sodium bicarb with ROSC. PFSH Past Medical History Hx Anticoagulant Therapy: Yes (Baby aspirin) Arthritis: Yes (DJD) Anxiety: Yes Depression: No Cancer: No Cardiovascular Problems: Yes ( recent P.E. 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) Social History Alcohol Use: Yes (BLOODY SAL AT NIGHT) Tobacco Use: Yes (2-3/day) Substance Use: No Allergies-Medications (Allergen,Severity, Reaction): Coded Allergies: codeine (Unverified Adverse Reaction, Mild, NAUSEA, 09/10/17) Reported Meds & Prescriptions Reported Meds & Active Scripts Active Deltasone (Prednisone) 20 Mg Tab 40 Mg PO DAILY 10 Days Azithromycin 250 Mg Tab 250 Mg PO DAILY 4 Days Albuterol Neb (Albuterol Sulfate) 2.5 Mg/3 Ml Neb 2.5 Mg NEB Q4HR NEB PRN Oxygen tank (Oxygen) 1 Ea Tank 2 Liter CRISTA.CANULA CONTINUOUS Oxygen Concentrator Portable Gaseous 2 L/min via Nasal Cannula Continuous For 99 months Reported Naprosyn (Naproxen) 500 Mg Tab 500 Mg PO DAILY Aspirin 81 Mg Chew 81 Mg CHEW DAILY Proventil Hfa 6.7 GM Inh (Albuterol Sulfate) 90 Mcg/Act Aer 2 Puff INH Q4H PRN Zoloft (Sertraline HCl) 100 Mg Tab 100 Mg PO DAILY Synthroid (Levothyroxine Sodium) 50 Mcg Tab 50 Mcg PO DAILY Review of Systems ROS Limitations: Clinical Condition, Unresponsive Physical Exam Narrative GENERAL: Obtunded SKIN: Focused skin assessment warm/dry. HEAD: Atraumatic. Normocephalic. EYES: Pupils equal, dilated, nonreactive. ENT: Mucous membranes pink and moist. Combi tube in place. NECK: Trachea midline. No JVD. CARDIOVASCULAR: Regular rate and rhythm. RESPIRATORY: No spontaneous respirations. Combitube in place. GASTROINTESTINAL: Abdomen soft, distended. MUSCULOSKELETAL: No obvious deformities. No clubbing. No cyanosis. No edema. NEUROLOGICAL: Obtunded. Data Data Last Documented VS Vital Signs Date Time Temp Pulse Resp B/P (MAP) Pulse Ox O2 Delivery O2 Flow Rate FiO2 09/10/17 09:03 90 15 100/64 (76) 94 Ventilator 100 09/10/17 08:02 97.5 Orders Orders Sepsis Workup Initiated (09/10/17 ) Electrocardiogram (09/10/17 08:19) Complete Blood Count With Diff (09/10/17 08:19) Comprehensive Metabolic Panel (09/10/17 08:19) Prothrombin Time / Inr (Pt) (09/10/17 08:19) Act Partial Throm Time (Ptt) (09/10/17 08:19) Lactic Acid Sepsis Protocol (09/10/17 08:19) Ckmb (Isoenzyme) Profile (09/10/17 08:19) Troponin I (09/10/17 08:19) Urinalysis - C+S If Indicated (09/10/17 08:19) Blood Culture (09/10/17 08:19) Chest, Single Ap (09/10/17 08:19) Ecg Monitoring (09/10/17 08:19) Iv Access Insert/Monitor (09/10/17 08:19) Oximetry (09/10/17 08:19) Oxygen Administration (09/10/17 08:19) Arterial Blood Gas (Abg) (09/10/17 ) Propofol 1000 Mg/100 Ml Inj (Diprivan 10 (09/10/17 09:00) Methylprednisolone So Succ Inj (Solumedr (09/10/17 09:00) Albuterol-Ipratropium Neb (Duoneb Neb) (09/10/17 09:00) Urine Culture (09/10/17 08:34) (Hub Use Only)Inp Phy Cons/Ref (09/10/17 ) Cta Thor Abd Aorta W Iv C W3d (09/10/17 ) CKMB (09/10/17 08:34) CKMB% (09/10/17 08:34) Ct Brain W/O Iv Contrast(Rout) (09/10/17 ) Thyroid Stimulating Hormone (09/10/17 09:21) Labs Laboratory Tests Test 09/10/17 08:34 09/10/17 08:46 White Blood Count 8.2 TH/MM3 Red Blood Count 3.83 MIL/MM3 Hemoglobin 12.8 GM/DL Hematocrit 40.1 % Mean Corpuscular Volume 104.6 FL Mean Corpuscular Hemoglobin 33.4 PG Mean Corpuscular Hemoglobin Concent 31.9 % Red Cell Distribution Width 16.0 % Platelet Count 223 TH/MM3 Mean Platelet Volume 9.1 FL Neutrophils (%) (Auto) 46.0 % Lymphocytes (%) (Auto) 38.8 % Monocytes (%) (Auto) 6.3 % Eosinophils (%) (Auto) 8.5 % Basophils (%) (Auto) 0.4 % Neutrophils # (Auto) 3.8 TH/MM3 Lymphocytes # (Auto) 3.2 TH/MM3 Monocytes # (Auto) 0.5 TH/MM3 Eosinophils # (Auto) 0.7 TH/MM3 Basophils # (Auto) 0.0 TH/MM3 CBC Comment AUTO DIFF Prothrombin Time 11.4 SEC Prothromb Time International Ratio 1.1 RATIO Activated Partial Thromboplast Time 33.8 SEC Urine Color YELLOW Urine Turbidity HAZY Urine pH 6.5 Urine Specific [place] 1.010 Urine Protein 100 mg/dL Urine Glucose (UA) NEG mg/dL Urine Ketones NEG mg/dL Urine Occult Blood MOD Urine Nitrite NEG Urine Bilirubin NEG Urine Urobilinogen LESS THAN 2.0 MG/DL Urine Leukocyte Esterase NEG Urine RBC 66 /hpf Urine WBC 3 /hpf Urine Squamous Epithelial Cells 3 /hpf Urine Amorphous Sediment MOD Urine Bacteria FEW /hpf Urine Hyaline Casts 8 /lpf Urine Mucus FEW /lpf Microscopic Urinalysis Comment CATH-CULTURE IND Blood Urea Nitrogen 10 MG/DL Creatinine 0.88 MG/DL Random Glucose 234 MG/DL Total Protein 6.1 GM/DL Albumin 3.0 GM/DL Calcium Level 8.3 MG/DL Alkaline Phosphatase 96 U/L Aspartate Amino Transf (AST/SGOT) 40 U/L Alanine Aminotransferase (ALT/SGPT) 19 U/L Total Bilirubin 0.1 MG/DL Sodium Level 148 MEQ/L Potassium Level 3.9 MEQ/L Chloride Level 107 MEQ/L Carbon Dioxide Level 23.5 MEQ/L Anion Gap 18 MEQ/L Estimat Glomerular Filtration Rate 64 ML/MIN Lactic Acid Level 13.6 mmol/L Total Creatine Kinase 151 U/L Creatine Kinase MB 2.3 NG/ML Troponin I LESS THAN 0.02 NG/ML Blood Gas Puncture Site LT RADIAL Blood Gas Patient Temperature 98.6 Blood Gas HCO3 19 mmol/L Blood Gas Base Excess -10.1 mmol/L Blood Gas Oxygen Saturation 96 % Arterial Blood pH 7.07 Arterial Blood Partial Pressure CO2 68 mmHg Arterial Blood Partial Pressure O2 313 mmHG Arterial Blood Oxygen Content 19.0 Vol % Arterial Blood Carboxyhemoglobin 2.2 % Arterial Blood Methemoglobin 0.7 % Blood Gas Hemoglobin 13.5 G/DL Oxygen Delivery Device VENTILATOR Blood Gas Ventilator Setting PRVC/AC Blood Gas Inspired Oxygen 100 % [facility] Medical Decision Making Medical Screen Exam Complete: Yes Emergency Medical Condition: Yes Interpretation(s) EKG: Sinus, rate 110, normal axis, normal intervals, ST depressions in inferior and lateral leads, no ST segment elevations. Differential Diagnosis Cardiac arrest, DC, hypoxia, PE, COPD, hypercapnia, pneumonia Narrative Course 9:00 AM: The patient's is at the bedside and was made aware of the critical condition of his . He tells me that for the last 3 days she has been having worsening shortness of breath. She does have history of COPD and uses home O2 at night. This morning she was administering her own nebulized treatments. She then stood up to go to the restroom. She returned to the bed, and while performing treatments on herself became unresponsive. He called 911 who advised that he start CPR. CBC: WBC 8.2, hemoglobin 12.8, hematocrit 40.1, platelets 223. CMP: Sodium 148, random glucose 234 Cardiac enzymes are negative. Lactic acid is 13.6. Chest x-ray: CONCLUSION: 1. Widened superior mediastinum new from prior exam. Recommend further evaluation with contrast-enhanced CT when clinically able. 2. Endotracheal tube appears appropriately positioned. Case discussed with experience planning strategist Dr. Gomez. CT thorax ordered. Patient will be admitted to the ICU to his service. Critical Care Narrative Aggregate critical care time was minutes. Time to perform other separately billable procedures was not included in the critical care time. My time did not include minutes spent treating any other patients simultaneously or on activities that did not directly contribute to the patient's treatment. The services I provided to this patient were to treat and/or prevent clinically significant deterioration that could result in: , permanent disability, worsening clinical condition I provided critical care services requiring my management, as noted below: Chart data review, documentation time, medication orders and management, vital sign assessments/reviewing monitor data, ordering and reviewing lab tests, ordering and interpreting/reviewing x-rays and diagnostic studies, care of the patient and discussion of the patient with the admitting physicians. Procedures Procedure Narrative Emergent intubation: The patient was put in optimal position for the procedure. Combitube removed and the patient was intubated with a 7.5 [place] cuffed endotracheal tube. Tube placement was confirmed by visualization of the tube and balloon passing through the cords, capnometry and subsequent chest x-ray. Breath sounds were equal and well aerated bilaterally postintubation. No breath sounds over stomach. Patient tolerated procedure well. Diagnosis Primary Impression: Cardiac arrest Additional Impression: Acute respiratory failure Qualified Codes: J96.01 - Acute respiratory failure with hypoxia Admitting Information Admitting Physician Requests: Admit Mitul Mendoza MD September 10, 2017 08:40
--- NOTE | 2017-09-10 08:42 | RADRPT ---
EXAM DATE/TIME: 09/10/2017 08:25 [facility] COMPARISON: CHEST SINGLE AP, November 19, 2016, 16:23. INDICATIONS : Post intubation. MEDICAL HISTORY : Chronic obstructive pulmonary disease. Hypertension Pulmonary Embolism. SURGICAL HISTORY : None. ENCOUNTER: Initial ACUITY: 1 day PAIN SCORE: Non-responsive. LOCATION: Bilateral chest FINDINGS: AP supine portable view of the chest is performed. There is an endotracheal tube with the tip just be yond the level of the clavicles. Nasogastric tubing extending beyond the imaged portion of the film. The lungs are clear. The heart size appears normal however, there is widening of the superior mediast inum which is new from prior exam. CONCLUSION: 1. Widened superior mediastinum new from prior exam. Recommend further evaluation with contrast-enhan marilyn CT when clinically able. 2. Endotracheal tube appears appropriately positioned. Amber Olson MD on September 10, 2017 at 8:37 Board Certified Radiologist. This report was verified electronically.
[2017-09-10 08:53] LABS: AUTOMATED NEUTROPHIL # 3.8 TH/MM3 (1.8-7.7); BASOPHIL % 0.4 % (0.0-2.0); EOSINOPHIL # 0.7 TH/MM3 (0-0.4); EOSINOPHIL % 8.5 % (0.0-4.0); HEMATOCRIT 40.1 % (35.0-46.0); HEMOGLOBIN 12.8 GM/DL (11.6-15.3); LYMPH % 38.8 % (9.0-44.0); LYMPHOCYTE # 3.2 TH/MM3 (1.0-4.8); MEAN CELL VOLUME 104.6 FL (80.0-100.0); MEAN CORPUSCULAR HEMOGLOBIN 33.4 PG (27.0-34.0); MEAN CORPUSCULAR HGB CONC 31.9 % (32.0-36.0); MEAN PLATELET VOLUME 9.1 FL (7.0-11.0); MONO % 6.3 % (0.0-8.0); MONOCYTE # 0.5 TH/MM3 (0-0.9); PLATELET COUNT 223 TH/MM3 (150-450); RED BLOOD COUNT 3.83 MIL/MM3 (4.00-5.30); WHITE BLOOD COUNT 8.2 TH/MM3 (4.0-11.0)
[2017-09-10 08:59] LABS: AMORPHOUS SEDIMENT, URINE MOD; BACTERIA, URINE FEW /hpf; BILIRUBIN, URINE NEG (NEG); BLOOD, URINE MOD (NEG); GLUCOSE,URINE NEG (NEG); HYALINE CAST, URINE 8 /lpf (RARE); KETONE, URINE NEG (NEG); MUCUS URINE FEW /lpf (OCC); NITRITE,URINE NEG (NEG); PH, URINE 6.5 (5.0-8.5); SQUAMOUS EPITHELIAL CELL URINE 3 /hpf (0-5); URINE COLOR YELLOW (YELLW/STRAW); URINE LEUKOCYTE ESTERASE NEG (NEG)
[2017-09-10] MEDS ORDERED: methylPREDNISolone SOD SUCC 125 MG/2 ML VIAL IV PUSH ONE (09:00)
[2017-09-10] MEDS ORDERED: RESP: ALBUTEROL 2.5 MG/IPRATROPIUM 0.5 MG NEB (SCH) INH ONE (09:00)
[2017-09-10 09:02] LABS: INTERNATIONAL NORMALIZED RATIO 1.1 RATIO; PROTHROMBIN TIME - PATIENT 11.4 SEC (9.8-11.6)
[2017-09-10 09:06] LABS: ALT (GPT) 19 U/L (10-53)
[2017-09-10 09:09] LABS: ALKALINE PHOSPHATASE 96 U/L (45-117); TOTAL BILIRUBIN ADULT 0.1 MG/DL (0.2-1.0); TOTAL PROTEIN 6.1 GM/DL (6.4-8.2); TROPONIN I LESS THAN 0.02 NG/ML (0.02-0.05)
[2017-09-10 09:14] LABS: AST (GOT) 40 U/L (15-37); BICARBONATE 23.5 MEQ/L (21.0-32.0); BLOOD UREA NITROGEN 10 MG/DL (7-18); CALCIUM 8.3 MG/DL (8.5-10.1); CHLORIDE 107 MEQ/L (98-107); CREATININE 0.88 MG/DL (0.50-1.00); GLOMERULAR FILTRATION RATE 64 ML/MIN (>89); GLUCOSE,RANDOM 234 MG/DL (74-106); LACTIC ACID SEPSIS PROTOCOL 13.6 mmol/L (0.4-2.0); SODIUM (NA) 148 MEQ/L (136-145)
[2017-09-10] MEDS: PROPOFOL 1000 MG/100 ML INJ 100 ML IV PRN ×2 (09:23→18:25)
[2017-09-10 09:26] LABS: BANDS 6 % (0-6); BASOPHILS 1 % (0-2); MONOCYTES 4 % (0-8); MYELOCYTES 2 % (0-0); NEUTROPHIL # MANUAL DIFF 3.8 TH/MM3 (1.8-7.7); PLASMA CELLS 1 % (0-0); POLYS (SEG NEUTROPHILS) 38 % (16-70)
[2017-09-10 09:27] LABS: LYMPHOCYTES 39 % (9-44)
[2017-09-10] MEDS ORDERED: RESP: ALBUTEROL 2.5 MG/IPRATROPIUM 0.5 MG NEB (PRN) INH (09:30)
[2017-09-10] MEDS ORDERED: NURSING INFORMATION XX SCH (09:30)
[2017-09-10] MEDS ORDERED: SODIUM CHLORIDE 0.9% FLUSH 10 ML FLUSH IV FLUSH PRN (09:30)
[2017-09-10] MEDS ORDERED: CHLORHEXIDINE GLUCONATE 2 % 1 PACK (2 CLOTHS) TOP PRN (09:30)
--- NOTE | 2017-09-10 09:34 | HHI.HP ---
HPI Service Critical Care Medicine Primary Care Physician Unknown Admission Diagnosis Cardiac arrest, acute respiratory failure Diagnosis: (1) PEA (Pulseless electrical activity) Diagnosis: Principal (2) Cardiac arrest Diagnosis: Principal (3) Acute respiratory failure Diagnosis: Principal (4) COPD with acute exacerbation Diagnosis: Principal (5) Anoxic brain damage Diagnosis: Principal (6) Anoxic cerebral edema Diagnosis: Principal (7) Lactic acidemia Diagnosis: Principal (8) Mediastinal widening Diagnosis: Principal Chief Complaint: PEA cardiac arrest Anoxic brain injury Travel History International Travel<30 Days: No Contact w/Intl Traveler <30 Da: No Traveled to Known Affected Are: No History of Present Illness Patient is a 67-year-old female with past medical history significant for severe COPD on home oxygen, continued tobacco abuse, questionable history of pulmonary embolism in the past who was brought into the emergency department after sustaining a PEA cardiac arrest. According to the patient had been increasingly short of breath for the last few days particularly was since yesterday. She refused to go to her physician. Today while taking a breathing treatment she suddenly collapsed and became unresponsive. Her started CPR and called 911 and when paramedics arrived the patient was in PEA cardiac arrest. CPR was initiated and Combi tube was placed. The patient received 4 rounds of epinephrine and 2 amps of sodium bicarb with ROSC in the field. In the ED Combitube was replaced with endotracheal tube, and after intubation the patient was noted to be pulseless. CPR was initiated, the patient was provided 1 amp of epinephrine and 1 amp of sodium bicarb with ROSC. Lab work showed mostly CBC and chemistry unremarkable, lactic acid was 13.6, blood sugar was 234. ABG in the ER showed 7.07/68/313. Chest x-ray showed questionable mediastinal widening. CT angiogram of the thorax ruled out any dissection and also pulmonary embolism was ruled out as she has history of PE but a previous H& P. CT of the brain showed diffuse cerebral edema consistent with severe anoxic brain injury I evaluated the patient in the ICU. With propofol turned off patient does not have spontaneous eye opening or any spontaneous movements. No response to painful stimuli. Pupillary reaction is sluggish. To deep visceral pain that is no withdrawal. I discussed with patients and stepson I explained to them I do not recommend induced hypothermia for neuro protection due to the evidence of irreversible anoxic brain injury on CAT scan, and also due to the fact that it is a primary respiratory arrest. They expressed good understanding however wants to continue supportive care for 24-48 hours to see whether this is an improvement.. Patient had been placed on scheduled IV Solu- Medrol, scheduled breathing treatments, and empiric cefepime. I believe the respiratory arrest/hypercapnia led to the PEA cardiac arrest. Review of Systems ROS Limitations: Intubated, Unresponsive Past Family Social History Allergies: Coded Allergies: codeine (Unverified Adverse Reaction, Mild, NAUSEA, 09/10/17) Past Medical History Chronic obstructive pulmonary disease Arthritis History of pulmonary emboli Past Surgical History Tubal ligation Right hip replacement Reported Medications Deltasone (Prednisone) 20 Mg Tab 40 Mg PO DAILY 10 Days Azithromycin 250 Mg Tab 250 Mg PO DAILY 4 Days Albuterol Neb (Albuterol Sulfate) 2.5 Mg/3 Ml Neb 2.5 Mg NEB Q4HR NEB PRN Oxygen tank (Oxygen) Naprosyn (Naproxen) 500 Mg Tab 500 Mg PO DAILY Aspirin 81 Mg Chew 81 Mg CHEW DAILY Proventil Hfa 6.7 GM Inh (Albuterol Sulfate) 90 Mcg/Act Aer 2 Puff INH Q4H PRN Zoloft (Sertraline HCl) 100 Mg Tab 100 Mg PO DAILY Synthroid (Levothyroxine Sodium) 50 Mcg Tab 50 Mcg PO DAILY Active Ordered Medications Reviewed Family History Father had lung cancer Social History Used to be a heavy smoker currently smokes 3-4 cigarettes a day 1 alcoholic beverage per day Physical Exam Vital Signs Vital Signs Date Time Temp Pulse Resp B/P (MAP) Pulse Ox O2 Delivery O2 Flow Rate FiO2 09/10/17 09:03 90 15 100/64 (76) 94 Ventilator 100 09/10/17 08:49 84 17 116/66 (83) 100 Ventilator 96 09/10/17 08:35 97 18 103/59 (74) 98 Ventilator 100 09/10/17 08:29 98 100 09/10/17 08:19 109 95/50 (65) 09/10/17 08:17 110 127/66 (86) 09/10/17 08:15 100 09/10/17 08:15 112 121/62 (81) 09/10/17 08:02 97.5 107 12 61/36 (44) 58 100 09/10/17 08:02 97.5 107 12 61/36 (44) 58 09/10/17 08:02 97.5 107 12 61/36 (44) 58 Ventilator 100 Physical Exam GENERAL: 67-year-old female who is comatose unresponsive SKIN: Warm and dry HEAD: Atraumatic. Normocephalic. EYES: Pupils equal, 3mm, nonreactive. ENT: Orotracheally intubated. No cough or gag NECK: Trachea midline. No JVD. CARDIOVASCULAR: Tachycardic rate and rhythm. Hypertensive. Bedside Echo limited view (subcostal) showed persevered LV function RESPIRATORY: No spontaneous respirations. Combitube in place. GASTROINTESTINAL: Abdomen distended. Tympanic MUSCULOSKELETAL: No obvious deformities. No clubbing. NEUROLOGICAL: GCS 3T. Pupils equal, 3mm, nonreactive. No withdrawal to deep visceral pain. No spontaneous eye opening, no spontaneous movements. Laboratory Laboratory Tests Test 09/10/17 08:34 09/10/17 08:46 White Blood Count 8.2 Red Blood Count 3.83 Hemoglobin 12.8 Hematocrit 40.1 Mean Corpuscular Volume 104.6 Mean Corpuscular Hemoglobin 33.4 Mean Corpuscular Hemoglobin Concent 31.9 Red Cell Distribution Width 16.0 Platelet Count 223 Mean Platelet Volume 9.1 Neutrophils (%) (Auto) 46.0 Lymphocytes (%) (Auto) 38.8 Monocytes (%) (Auto) 6.3 Eosinophils (%) (Auto) 8.5 Basophils (%) (Auto) 0.4 Neutrophils # (Auto) 3.8 Lymphocytes # (Auto) 3.2 Monocytes # (Auto) 0.5 Eosinophils # (Auto) 0.7 Basophils # (Auto) 0.0 CBC Comment AUTO DIFF Differential Total Cells Counted 100 Neutrophils % (Manual) 38 Band Neutrophils % 6 Lymphocytes % 39 Monocytes % 4 Eosinophils % 9 Basophils % 1 Neutrophils # (Manual) 3.8 Myelocytes 2 Differential Comment FINAL DIFF MANUAL Atypical Lymphocytes Plasma Cells 1 Platelet Estimate NORMAL Platelet Morphology Comment NORMAL Prothrombin Time 11.4 Prothromb Time International Ratio 1.1 Activated Partial Thromboplast Time 33.8 Urine Color YELLOW Urine Turbidity HAZY Urine pH 6.5 Urine Specific [place] 1.010 Urine Protein 100 Urine Glucose (UA) NEG Urine Ketones NEG Urine Occult Blood MOD Urine Nitrite NEG Urine Bilirubin NEG Urine Urobilinogen LESS THAN 2.0 Urine Leukocyte Esterase NEG Urine RBC 66 Urine WBC 3 Urine Squamous Epithelial Cells 3 Urine Amorphous Sediment MOD Urine Bacteria FEW Urine Hyaline Casts 8 Urine Mucus FEW Microscopic Urinalysis Comment CATH-CULTURE IND Blood Urea Nitrogen 10 Creatinine 0.88 Random Glucose 234 Total Protein 6.1 Albumin 3.0 Calcium Level 8.3 Alkaline Phosphatase 96 Aspartate Amino Transf (AST/SGOT) 40 Alanine Aminotransferase (ALT/SGPT) 19 Total Bilirubin 0.1 Sodium Level 148 Potassium Level 3.9 Chloride Level 107 Carbon Dioxide Level 23.5 Anion Gap 18 Estimat Glomerular Filtration Rate 64 Lactic Acid Level 13.6 Total Creatine Kinase 151 Creatine Kinase MB 2.3 Troponin I LESS THAN 0.02 Blood Gas Puncture Site LT RADIAL Blood Gas Patient Temperature 98.6 Blood Gas HCO3 19 Blood Gas Base Excess -10.1 Blood Gas Oxygen Saturation 96 Arterial Blood pH 7.07 Arterial Blood Partial Pressure CO2 68 Arterial Blood Partial Pressure O2 313 Arterial Blood Oxygen Content 19.0 Arterial Blood Carboxyhemoglobin 2.2 Arterial Blood Methemoglobin 0.7 Blood Gas Hemoglobin 13.5 Oxygen Delivery Device VENTILATOR Blood Gas Ventilator Setting PRVC/AC Blood Gas Inspired Oxygen 100 Date/Time Source Procedure Growth Status 09/10/17 08:34 Blood Peripheral Aerobic Blood Culture Pending Received 09/10/17 08:34 Blood Peripheral Anaerobic Blood Culture Pending Received 09/10/17 08:34 Urine Catheterized Urine Urine Culture Pending Received Result Diagram: 09/10/17 0834 09/10/[address] head shows diffuse cerebral edema consistent with anoxic brain injury Septic Shock Reassessment Septic shock perfusion: reassessment completed Caprini VTE Risk Assessment Caprini VTE Risk Assessment: Mod/High Risk (score >= 2) Caprini Risk Assessment Model Point Value = 1 Point Value = 2 Point Value = 3 Point Value = 5 Age 41-60 Minor surgery BMI > 25 kg/m2 Swollen legs Varicose veins or History of unexplained or recurrent spontaneous Oral contraceptives or hormone replacement Sepsis (< 1 month) Serious lung disease, including pneumonia (< 1 month) Abnormal pulmonary function Acute myocardial infarction Congestive heart failure (< 1 month) History of inflammatory bowel disease Medical patient at bed rest Age 61-74 Arthroscopic surgery Major open surgery (> 45 min) Laparoscopic surgery (> 45 min) Malignancy Confined to bed (> 72 hours) Immobilizing plaster cast Central venous access Age >= 75 History of VTE Family history of VTE Factor V Leiden Prothrombin [id number] Lupus anticoagulant Anticardiolipin antibodies Elevated serum homocysteine Heparin-induced thrombocytopenia Other congenital or acquired thrombophilia Stroke (< 1 month) Elective arthroplasty Hip, pelvis, or leg fracture Acute spinal cord injury (< 1 month) Prophylaxis Regimen Total Risk Factor Score Risk Level Prophylaxis Regimen 0-1 Low Early ambulation 2 Moderate Order ONE of the following: *Sequential Compression Device (SCD) *Heparin 5000 units SQ BID 3-4 Higher Order ONE of the following medications: *Heparin 5000 units SQ TID *Enoxaparin/Lovenox 40 mg SQ daily (WT < 150 kg, CrCl > 30 mL/min) *Enoxaparin/Lovenox 30 mg SQ daily (WT < 150 kg, CrCl > 10-29 mL/min) *Enoxaparin/Lovenox 30 mg SQ BID (WT < 150 kg, CrCl > 30 mL/min) AND/OR *Sequential Compression Device (SCD) 5 or more Highest Order ONE of the following medications: *Heparin 5000 units SQ TID (Preferred with Epidurals) *Enoxaparin/Lovenox 40 mg SQ daily (WT < 150 kg, CrCl > 30 mL/min) *Enoxaparin/Lovenox 30 mg SQ daily (WT < 150 kg, CrCl > 10-29 mL/min) *Enoxaparin/Lovenox 30 mg SQ BID (WT < 150 kg, CrCl > 30 mL/min) AND *Sequential Compression Device (SCD) Assessment and Plan Assessment and Plan NEURO: Acute anoxic brain injury Encephalopathy -CT of the head shows evidence of anoxic brain injury -Check stat EEG -Due to poor neuro exam, primary respiratory arrest and evidence of cerebral edema, severe anoxic injury patient is deemed not a candidate for induced hypothermia -Supplement thiamine -Toxicology screen negative RESP: Acute hypercarbic and hypoxemic respiratory failure Acute COPD exacerbation -Continue mechanical ventilation PRVC/AC mode -DuoNeb every 6 hours scheduled and as needed -IV Solu-Medrol 60 mg every 8 hours -Empiric cefepime -Follow-up sputum culture CV: PEA arrest Hypertension Lactic acidosis -Cardiac arrest secondary to severe respiratory acidosis, respiratory arrest -Cycle cardiac enzymes cycle lactic acid -Limited bedside echo preserved LV function, no evidence of significant pericardial effusion -CT angiogram chest negative for aortic dissection -Patient is hypotensive now use as needed hydralazine avoid beta blockers at this time due to PEA arrest -Normal saline 2 L bolus and 75 ml per hour GI: Mild transaminitis -N.p.o., IV famotidine : -Monitor renal function closely. Noriega catheter. -IV hydration as above ID: -Empiric cefepime for COPD exacerbation -Follow-up on blood urine and sputum cultures HEME: Macrocytosis -Monitor CBC, CMP, coags ENDO: Hypernatremia Hyperglycemia -Electrolyte replacement per protocol -Sliding scale insulin for hyperglycemia PROPH: -Bilateral lower extremity SCDs. Lovenox/Pepcid LINES: -Utilize peripheral IVs, central line if needed CC time 78 min Code Status Full Discussed Condition With Dr. Mendoza Problem Qualifiers (1) Acute respiratory failure: Qualified Codes: J96.01 - Acute respiratory failure with hypoxia; J96.02 - Acute respiratory failure with hypercapnia Philip Gomez MD September 10, 2017 09:34
[2017-09-10] MEDS: SODIUM CHLOR 0.9% 1000 ML INJ 1,000 ML IV SCH ×2 (09:38→23:20)
[2017-09-10] MEDS ORDERED: IOHEXOL 350 MG/ML 10 ML VIAL (for RAD DIAG) IVCONTRAST ONE (09:58)
[2017-09-10] MEDS: INSULIN ASPART SUPPLEMENTAL SCALE SQ SCH ×4 (10:00→21:41)
--- NOTE | 2017-09-10 10:06 | RADRPT ---
EXAM DATE/TIME: 09/10/2017 09:32 [facility] COMPARISON: No previous studies available for comparison. INDICATIONS : Post cardiac arrest, altered mental status. RADIATION DOSE: 58.27 CTDIvol (mGy) MEDICAL HISTORY : Cardiovascular disease. Chronic obstructive pulmonary disease. Hypertension. SURGICAL HISTORY : Non-responsive. ENCOUNTER: Initial ACUITY: 1 day PAIN SCALE: Non-responsive LOCATION: cranial TECHNIQUE: Multiple contiguous axial images were obtained of the head. Using automated exposure control and adj ustment of the mA and/or kV according to patient size, radiation dose was kept as low as reasonably a chievable to obtain optimal diagnostic quality images. DICOM format image data is available electro nically for review and comparison. FINDINGS: CEREBRUM: The ventricles are normal for age. No evidence of midline shift. There is diffuse loss of holley-white matter differentiation concerning for diffuse edema. There is diffuse sulcal effacement with preserv ation of the sulci seen only within the superior convexities. POSTERIOR FOSSA: The cerebellum and brainstem are intact. The 4th ventricle is midline. The cerebellopontine angle i s unremarkable. EXTRACRANIAL: The visualized portion of the orbits is intact. SKULL: The calvaria is intact. No evidence of skull fracture. CONCLUSION: Diffuse sulcal effacement and loss of holley-white matter differentiation concerning for diffuse edema. The ventricles are still patent. There is preservation of the sulci identified within the superior c onvexities. Sequelae are likely secondary to anoxia. Amber Olson MD on September 10, 2017 at 10:00 Board Certified Radiologist. This report was verified electronically.
[2017-09-10] MEDS ORDERED: GLUCAGON 1 MG/ML VIAL OTHER PRN (10:15)
[2017-09-10] MEDS ORDERED: DEXTROSE 50% IN WATER 50 ML VIAL(D50) IV PUSH PRN (10:15)
--- NOTE | 2017-09-10 10:34 | RADRPT ---
EXAM DATE/TIME: 09/10/2017 09:39 [facility] COMPARISON: No previous studies available for comparison. INDICATIONS : Post cardiac arrest; evaluate for aortic dissection. IV CONTRAST: 99 cc Omnipaque 350 (iohexol) IV RADIATION DOSE: 17.03 CTDIvol (mGy) MEDICAL HISTORY : Cardiovascular disease. Chronic obstructive pulmonary disease. Hypertension. SURGICAL HISTORY : Non-responsive. ENCOUNTER: Initial ACUITY: 1 day PAIN SCALE: Non-responsive LOCATION: chest TECHNIQUE: Volumetric scanning was performed using a multi-row detector CT scanner. The data was post processed with a variety of visualization algorithms including full volume maximum intensity projection, multi -planar sliding thin slab reformation, curved planar reformation, and surface rendering techniques. Using automated exposure control and adjustment of the mA and/or kV according to patient size, radiat ion dose was kept as low as reasonably achievable to obtain optimal diagnostic quality images. DICOM format image data is available electronically for review and comparison. FINDINGS: LUNGS: There is a right lower lobe partial atelectasis/consolidation. The remainder of the lungs are clear. There is an endotracheal tube identified within the trachea. PULMONARY ARTERIES: There is good opacification of the pulmonary arteries without evidence of filling defects. MEDIASTINUM: No abnormally enlarged lymph nodes by CT criteria. No axillary or hilar abnormalities are identified. ABDOMEN: There is a nasogastric tube identified within the lumen of the stomach. Noriega catheter identified wit hin the bladder. The liver and spleen are free of focal defects. The gallbladder and pancreas demonst rate no abnormality. The adrenal glands are normal. The kidneys demonstrate no evidence of solid l mass or hydronephrosis. No free fluid or abdominal masses are identified. No para-aortic adenopathy is seen. PELVIS: No evidence of free fluid or pelvic mass. No abnormally enlarged inguinal or retroperitoneal lymph no shannon are present. The bladder is unremarkable. THORACIC AORTA: The thoracic aortic root is normal with normal branching of the great vessels. There is no evidence of aneurysm or dissection. Scattered atherosclerosis. ABDOMINAL AORTA: The aorta is normal in caliber without aneurysm or dissection. The renal arteries are patent bilater ally. The proximal celiac and superior mesenteric arteries are patent and normal in diameter. Scat tered atherosclerosis. PELVIC VESSELS: The internal iliac and external iliac vessels are patent without aneurysm or stenosis. CONCLUSION: 1. No evidence of PE or aortic dissection. 2. Appropriate positioned lines and tubes. 3. No acute abnormality seen.. Amber Olson MD on September 10, 2017 at 10:24 Board Certified Radiologist. This report was verified electronically.
[2017-09-10] MEDS: CEFEPIME INJ 2,000 MG in SODIUM CHLORIDE 0.9% INJ 100 ML IV SCH ×2 (11:11→21:40)
[2017-09-10] MEDS: hydrALAZINE HCL 20 MG/ML VIAL IV PUSH PRN ×2 (11:11→17:22)
[2017-09-10] MEDS: AZITHROMYCIN INJ 500 MG in SODIUM CHLOR 0.9% 250 ML INJ 250 ML IV SCH (11:11)
[2017-09-10] MEDS: ENOXAPARIN SODIUM 40 MG/0.4 ML SYRINGE SQ SCH (11:12)
[2017-09-10] MEDS ORDERED: niCARdipine INJ 25 MG in SODIUM CHLOR 0.9% 250 ML INJ 240 ML IV PRN (11:15)
[2017-09-10] MEDS: RESP: ALBUTEROL 2.5 MG/IPRATROPIUM 0.5 MG NEB (SCH) NEB ×4 (11:42→23:27)
[2017-09-10] MEDS ORDERED: ROCURONIUM INJ 50 MG/5 ML VIAL IV ONE (12:30)
[2017-09-10] MEDS: THIAMINE INJ 100 MG in SODIUM CHLORIDE 0.9% INJ 100 ML IV SCH (13:45)
[2017-09-10] MEDS: methylPREDNISolone SOD SUCC 125 MG/2 ML VIAL IV PUSH SCH ×2 (14:53→21:40)
--- NOTE | 2017-09-10 16:36 | MG ---
cc: Yadira Mckinney MD, Dalia MD EEG NUMBER [id number] REFERRING PHYSICIAN: Dr. Gomez INDICATION: Intubated with photic done, 10 mcg Diprivan turned on for muscle artifact, 50 mcg of GEOFFREY was given for muscle artifact. CT shows diffuse effacement, loss of holley-white matter differentiation consistent with diffuse edema, admitted with unresponsiveness, PEA arrest. CPR done. History of chronic obstructive pulmonary disease, PE, thyroid disease. DESCRIPTION OF RECORD: There is quite a bit of artifact throughout the recording, difficult to interpret any background rhythm. A lot is in the frontal eye vidal. Diprivan is given at epoch 49, 10 mcg. Tried to eliminate some of the artifact and then increased. Photic stimulation did not elicit any driving response. Absent 50 of GEOFFREY was given, a paralytic was given, The artifact subsided and the background showed diffuse attenuation, low-amplitude consistent with delta waves only. Likely this is due to severe disturbance of cerebral function such as anoxia. No epileptic activity. Clinical correlation. MD LUZ Dong/ , 03:13 PM , 04:35 PM
[2017-09-10 16:55] LABS: TROPONIN I 0.6 NG/ML (0.02-0.05)
--- NOTE | 2017-09-10 18:11 | EKG ---
Date Performed: 09/10/2017 Time Performed: 08:20:39 PTAGE: 67 years EKG: SINUS TACHYCARDIA NONSPECIFIC ST & T-WAVE ABNORMALITY ABNORMAL ECG Compared to PREVIOUS TRACING , rate faster DOCTOR: Kenroy Quan Interpretating Date/Time 09/10/2017 18:10:55
[2017-09-10] MEDS: CHLORHEXIDINE 0.12% (ORAL KIT) 15 ML CUP MT SCH (20:00)
[2017-09-10] MEDS: FAMOTIDINE 20 MG/2 ML VIAL IV PUSH SCH (21:40)
[2017-09-10] MEDS: SODIUM CHLORIDE 0.9% FLUSH 10 ML FLUSH IV FLUSH SCH (21:47)
[2017-09-10 22:46] LABS: MAGNESIUM 1.6 MG/DL (1.5-2.5)
[2017-09-10 22:51] LABS: TROPONIN I 0.84 NG/ML (0.02-0.05)
[2017-09-11] VITALS (24 sets, daily range): BP systolic 96–179; BP diastolic 56–91; PULSE 63–109; RESP 17–33; TEMP 100.5–102.4; O2SAT 91–96
[2017-09-11] MEDS: INSULIN ASPART SUPPLEMENTAL SCALE SQ SCH ×6 (02:00→21:41)
[2017-09-11] MEDS ORDERED: CHLORHEXIDINE GLUCONATE 2 % 1 PACK (2 CLOTHS) TOP SCH (04:00)
[2017-09-11] MEDS: RESP: ALBUTEROL 2.5 MG/IPRATROPIUM 0.5 MG NEB (SCH) NEB ×6 (04:05→23:06)
[2017-09-11 04:25] LABS: AUTOMATED NEUTROPHIL # 19.7 TH/MM3 (1.8-7.7); BASOPHIL % 0.1 % (0.0-2.0); HEMOGLOBIN 15.3 GM/DL (11.6-15.3); LYMPH % 1.8 % (9.0-44.0); LYMPHOCYTE # 0.4 TH/MM3 (1.0-4.8); MEAN CORPUSCULAR HEMOGLOBIN 33.1 PG (27.0-34.0); MEAN CORPUSCULAR HGB CONC 33.4 % (32.0-36.0); MONO % 5.8 % (0.0-8.0); MONOCYTE # 1.2 TH/MM3 (0-0.9); NEUT % 92.3 % (16.0-70.0); PLATELET COUNT 200 TH/MM3 (150-450); RED BLOOD COUNT 4.64 MIL/MM3 (4.00-5.30); RED CELL DISTRIBUTION WIDTH 15.4 % (11.6-17.2); WHITE BLOOD COUNT 21.3 TH/MM3 (4.0-11.0)
--- NOTE | 2017-09-11 04:29 | RADRPT ---
EXAM DATE/TIME: 09/11/2017 04:07 [facility] COMPARISON: CHEST SINGLE AP, September 10, 2017, 8:25. INDICATIONS : Shortness of breath, post cardiac arrest. MEDICAL HISTORY : Chronic obstructive pulmonary disease. Hypertension PE SURGICAL HISTORY : None. ENCOUNTER: Subsequent ACUITY: 2 days PAIN SCORE: Non-responsive. LOCATION: Bilateral chest FINDINGS: A single view of the chest demonstrates the lungs to be symmetrically aerated without evidence of mas s, infiltrate or effusion. The cardiomediastinal contours are unremarkable. Osseous structures are intact. The endotracheal tube remains in place with the tip 5 cm above the jigna. Nasogastric tube r emains in place as well. CONCLUSION: Stable appearance with no acute cardiopulmonary disease. Jonathon Fischer MD on September 11, 2017 at 4:26 Board Certified Radiologist. This report was verified electronically.
[2017-09-11] MEDS: methylPREDNISolone SOD SUCC 125 MG/2 ML VIAL IV PUSH SCH ×4 (04:44→21:41)
[2017-09-11] MEDS: CEFEPIME INJ 2,000 MG in SODIUM CHLORIDE 0.9% INJ 100 ML IV SCH ×3 (04:44→21:40)
[2017-09-11 04:59] LABS: ALBUMIN 3.5 GM/DL (3.4-5.0); ALKALINE PHOSPHATASE 100 U/L (45-117); ALT (GPT) 35 U/L (10-53); AST (GOT) 237 U/L (15-37); BICARBONATE 25.3 MEQ/L (21.0-32.0); BLOOD UREA NITROGEN 18 MG/DL (7-18); CALCIUM 8.3 MG/DL (8.5-10.1); CHLORIDE 112 MEQ/L (98-107); CREATININE 0.77 MG/DL (0.50-1.00); GLOMERULAR FILTRATION RATE 74 ML/MIN (>89); GLUCOSE,RANDOM 137 MG/DL (74-106); SODIUM (NA) 147 MEQ/L (136-145); TOTAL BILIRUBIN ADULT 0.3 MG/DL (0.2-1.0); TOTAL PROTEIN 7.2 GM/DL (6.4-8.2)
[2017-09-11] MEDS: FAMOTIDINE 20 MG/2 ML VIAL IV PUSH SCH ×2 (07:53→21:41)
[2017-09-11] MEDS: SODIUM CHLORIDE 0.9% FLUSH 10 ML FLUSH IV FLUSH SCH (07:54)
[2017-09-11] MEDS: CHLORHEXIDINE 0.12% (ORAL KIT) 15 ML CUP MT SCH (07:55)
[2017-09-11] MEDS: AZITHROMYCIN INJ 500 MG in SODIUM CHLOR 0.9% 250 ML INJ 250 ML IV SCH (10:02)
[2017-09-11] MEDS: ENOXAPARIN SODIUM 40 MG/0.4 ML SYRINGE SQ SCH (10:02)
[2017-09-11] MEDS ORDERED: Vancomycin Consult Pharmacy 1 EA OTHER SCH (10:30)
[2017-09-11] MEDS: ACETAMINOPHEN 325 MG TAB PO PRN ×2 (11:05→17:40)
[2017-09-11] MEDS: VANCOMYCIN INJ 1,250 MG in SODIUM CHLOR 0.9% 250 ML INJ 250 ML IV SCH (11:05)
[2017-09-11] MEDS: SODIUM CHLOR 0.9% 1000 ML INJ 1,000 ML IV SCH (13:05)
[2017-09-11] MEDS: THIAMINE INJ 100 MG in SODIUM CHLORIDE 0.9% INJ 100 ML IV SCH (13:05)
--- NOTE | 2017-09-11 13:55 | HHI.CCPN ---
Subjective Remarks/Hospital Course Patient is a 67-year-old female with past medical history significant for severe COPD on home oxygen, continued tobacco abuse, questionable history of pulmonary embolism in the past who was brought into the emergency department after sustaining a PEA cardiac arrest. According to the patient had been increasingly short of breath for the last few days particularly was since yesterday. She refused to go to her physician. Today while taking a breathing treatment she suddenly collapsed and became unresponsive. Her started CPR and called 911 and when paramedics arrived the patient was in PEA cardiac arrest. CPR was initiated and Combi tube was placed. The patient received 4 rounds of epinephrine and 2 amps of sodium bicarb with ROSC in the field. In the ED Combitube was replaced with endotracheal tube, and after intubation the patient was noted to be pulseless. CPR was initiated, the patient was provided 1 amp of epinephrine and 1 amp of sodium bicarb with ROSC. Lab work showed mostly CBC and chemistry unremarkable, lactic acid was 13.6, blood sugar was 234. ABG in the ER showed 7.07/68/313. Chest x-ray showed questionable mediastinal widening. CT angiogram of the thorax ruled out any dissection and also pulmonary embolism was ruled out as she has history of PE but a previous H& P. CT of the brain showed diffuse cerebral edema consistent with severe anoxic brain injury I evaluated the patient in the ICU. With propofol turned off patient does not have spontaneous eye opening or any spontaneous movements. No response to painful stimuli. Pupillary reaction is sluggish. To deep visceral pain that is no withdrawal. I discussed with patients and stepson I explained to them I do not recommend induced hypothermia for neuro protection due to the evidence of irreversible anoxic brain injury on CAT scan, and also due to the fact that it is a primary respiratory arrest. They expressed good understanding however wants to continue supportive care for 24-48 hours to see whether this is an improvement.. Patient had been placed on scheduled IV Solu- Medrol, scheduled breathing treatments, and empiric cefepime. I believe the respiratory arrest/hypercapnia led to the PEA cardiac arrest. SUBJ 09/11/17: Patient remains severely encephalopathy. No response to painful stimuli no corneals no pupillary reflex. Trey high fever 102.4. Pancultures sent are pending at this time. and stepson at the bedside updated. Patient remains critical with minimal chance of meaningful neurological recovery. EEG shows background showed diffuse attenuation, low-amplitude consistent with delta waves only. Most likely secondary to severe anoxic brain injury Objective Vital Signs Date Time Temp Pulse Resp B/P (MAP) Pulse Ox O2 Delivery O2 Flow Rate FiO2 09/11/17 13:00 108 18 152/79 (103) 94 09/11/17 12:00 70 09/11/17 12:00 102.4 09/10/17 09:03 Ventilator Intake and Output 09/11/17 09/11/17 09/11/17 07:59 15:59 23:59 Intake Total 1294 ml 612.5 ml Output Total 600 ml Balance 694 ml 612.5 ml Result Diagram: 09/11/17 0348 09/11/17 0348 Other Results Laboratory Tests Test 09/11/17 08:19 Blood Gas Puncture Site RT RADIAL Blood Gas Patient Temperature 98.6 Blood Gas HCO3 25 mmol/L (22-26) Blood Gas Base Excess 0.8 mmol/L (-2-2) Blood Gas Oxygen Saturation 92 % (90-100) Arterial Blood pH 7.39 (7.380-7.420) Arterial Blood Partial Pressure CO2 43 mmHg (38-42) Arterial Blood Partial Pressure O2 76 mmHg (61-120) Arterial Blood Oxygen Content 19.7 Vol % (12.0-20.0) Arterial Blood Carboxyhemoglobin 0.7 % (0-4) Arterial Blood Methemoglobin 1.6 % (0-2) Blood Gas Hemoglobin 15.2 G/DL (12.0-16.0) Oxygen Delivery Device VENTILATOR Blood Gas Ventilator Setting [facility]/AC550/18 Blood Gas Inspired Oxygen 70 % Imaging CT head shows diffuse cerebral edema consistent with anoxic brain injury Objective Remarks GENERAL: 67-year-old female who is comatose unresponsive SKIN: Warm and dry HEAD: Atraumatic. Normocephalic. EYES: Pupils equal, 3mm, nonreactive. No corneal reflex ENT: Orotracheally intubated. No cough or gag NECK: Trachea midline. No JVD. CARDIOVASCULAR: Hypertensive. Bedside Echo limited view (subcostal) showed persevered LV function RESPIRATORY: No spontaneous respirations. Combitube in place. GASTROINTESTINAL: Abdomen distended. Tympanic MUSCULOSKELETAL: No obvious deformities. No clubbing. NEUROLOGICAL: GCS 3T. Pupils equal, 3mm, nonreactive. No corneal reflex. No withdrawal to deep visceral pain. No spontaneous eye opening, no spontaneous movements. A/P Assessment and Plan NEURO: Acute anoxic brain injury Severe encephalopathy secondary to anoxia -CT of the head shows evidence of anoxic brain injury -EEG shows background showed diffuse attenuation, low-amplitude consistent with delta waves only. Most likely secondary to severe anoxic brain injury -Family wants to give the patient 24-48 hours, also request neurology opinion -Due to poor neuro exam, primary respiratory arrest and evidence of cerebral edema, severe anoxic injury patient is deemed not a candidate for induced hypothermia -Supplement thiamine -Toxicology screen negative RESP: Acute hypercarbic and hypoxemic respiratory failure Acute COPD exacerbation, without evidence of pneumonia -Continue mechanical ventilation PRVC/AC mode -DuoNeb every 6 hours scheduled and as needed -IV Solu-Medrol 60 mg every 8 hours -Empiric cefepime. Add Flagyl to cover for aspiration, single dose of vancomycin -Follow-up sputum culture -Unable to perform SBT or extubation due to severe encephalopathy CV: PEA arrest Elevated troponin Acute metabolic acidosis -Cardiac arrest secondary to severe respiratory acidosis, respiratory arrest -Troponin elevation could be secondary to cardiac arrest. Start aspirin Coreg -No indication for cardiology consult due to poor neurological status, anoxic brain injury -Limited bedside echo preserved LV function, no evidence of significant pericardial effusion -CT angiogram chest negative for aortic dissection -Patient is hypertensive now use as needed hydralazine avoid beta blockers at this time due to PEA arrest -Normal saline s/p 2 L bolus and 75 ml per hour GI: Mild transaminitis -N.p.o., IV famotidine -Start tube feeds with Jevity : -Monitor renal function closely. Noriega catheter. -IV hydration as above ID: Fever leukocytosis Sepsis -Empiric cefepime for COPD exacerbation. Flagyl to cover for aspiration, give single dose of Vanco -Follow-up on blood urine and sputum cultures HEME: Macrocytosis -Monitor CBC, CMP, coags ENDO: Hypernatremia Hyperglycemia -Electrolyte replacement per protocol -Sliding scale insulin for hyperglycemia PROPH: -Bilateral lower extremity SCDs. Lovenox/Pepcid LINES: -Utilize peripheral IVs, central line if needed CC time 38 min Patient remains critically ill with acute encephalopathy severe anoxic brain injury. CT of the head and EEG consistent with anoxic brain injury. wants to give another 24-48 hours also get neurology input. Hypothermia could be neuro versus infectious. Overall prognosis poor Philip Gomez MD September 11, 2017 13:55
[2017-09-11] MEDS ORDERED: VANCOMYCIN INJ 1,000 MG in SODIUM CHLOR 0.9% 250 ML INJ 250 ML IV ONE (14:00)
[2017-09-11] MEDS: ASPIRIN 81 MG CHEW TAB CHEW SCH (14:13)
[2017-09-11] MEDS: metroNIDAZOLE 500 MG INJ 100 ML IV SCH ×2 (14:13→21:41)
[2017-09-11] MEDS: CARVEDILOL 3.125 MG TAB PO SCH ×2 (14:13→21:00)
[2017-09-11] MEDS ORDERED: LABETALOL HCL 100 MG/20 ML VIAL IV PUSH PRN (18:00)
[2017-09-12] VITALS (18 sets, daily range): BP systolic 94–124; BP diastolic 57–76; PULSE 54–76; RESP 18; TEMP 94.3–98.8; O2SAT 91–95
[2017-09-12] MEDS: VANCOMYCIN INJ 1,250 MG in SODIUM CHLOR 0.9% 250 ML INJ 250 ML IV SCH ×3 (00:43→23:38)
[2017-09-12] MEDS: SODIUM CHLORIDE 0.9% FLUSH 10 ML FLUSH IV FLUSH SCH ×3 (00:43→20:36)
[2017-09-12] MEDS: INSULIN ASPART SUPPLEMENTAL SCALE SQ SCH ×6 (02:00→22:00)
[2017-09-12] MEDS: RESP: ALBUTEROL 2.5 MG/IPRATROPIUM 0.5 MG NEB (SCH) NEB ×6 (03:26→23:55)
--- NOTE | 2017-09-12 05:09 | RADRPT ---
EXAM DATE/TIME: 09/12/2017 04:28 [place] COMPARISON: CHEST SINGLE AP, September 11, 2017, 4:07. INDICATIONS : Shortness of breath, possible pulmonary disease. MEDICAL HISTORY : Chronic obstructive pulmonary disease. Hypertension PE SURGICAL HISTORY : None. ENCOUNTER: Subsequent ACUITY: 3 days PAIN SCORE: Non-responsive. LOCATION: Bilateral chest FINDINGS: Endotracheal tube in good position. NG coiled in stomach. Subsegmental basilar air space disease. No effusion or pneumothorax. Heart size upper limits normal. CONCLUSION: 1. Subsegmental basilar air space disease increased on the left since September 11. Endotracheal tube and n asogastric tube unchanged. Raman Gilmore MD on September 12, 2017 at 5:04 Board Certified Radiologist. This report was verified electronically.
[2017-09-12] MEDS: CEFEPIME INJ 2,000 MG in SODIUM CHLORIDE 0.9% INJ 100 ML IV SCH ×3 (05:52→20:36)
[2017-09-12] MEDS: methylPREDNISolone SOD SUCC 125 MG/2 ML VIAL IV PUSH SCH ×4 (05:52→20:36)
[2017-09-12] MEDS: SODIUM CHLOR 0.9% 1000 ML INJ 1,000 ML IV SCH ×2 (05:53→15:20)
[2017-09-12] MEDS: metroNIDAZOLE 500 MG INJ 100 ML IV SCH ×3 (05:53→22:19)
[2017-09-12 06:26] LABS: AUTOMATED NEUTROPHIL # 11.9 TH/MM3 (1.8-7.7); HEMATOCRIT 38.1 % (35.0-46.0); HEMOGLOBIN 12.8 GM/DL (11.6-15.3); LYMPH % 2.6 % (9.0-44.0); LYMPHOCYTE # 0.3 TH/MM3 (1.0-4.8); MEAN CORPUSCULAR HEMOGLOBIN 33.3 PG (27.0-34.0); MEAN CORPUSCULAR HGB CONC 33.6 % (32.0-36.0); MEAN PLATELET VOLUME 9.1 FL (7.0-11.0); MONO % 4.5 % (0.0-8.0); MONOCYTE # 0.6 TH/MM3 (0-0.9); NEUT % 92.9 % (16.0-70.0); PLATELET COUNT 146 TH/MM3 (150-450); RED BLOOD COUNT 3.85 MIL/MM3 (4.00-5.30); RED CELL DISTRIBUTION WIDTH 15.5 % (11.6-17.2); WHITE BLOOD COUNT 12.8 TH/MM3 (4.0-11.0)
[2017-09-12 07:01] LABS: ALBUMIN 2.4 GM/DL (3.4-5.0); ALKALINE PHOSPHATASE 69 U/L (45-117); ALT (GPT) 33 U/L (10-53); AST (GOT) 212 U/L (15-37); BICARBONATE 24.8 MEQ/L (21.0-32.0); BLOOD UREA NITROGEN 19 MG/DL (7-18); CALCIUM 7.8 MG/DL (8.5-10.1); CHLORIDE 116 MEQ/L (98-107); CREATININE 0.55 MG/DL (0.50-1.00); GLOMERULAR FILTRATION RATE 110 ML/MIN (>89); GLUCOSE,RANDOM 149 MG/DL (74-106); MAGNESIUM 1.7 MG/DL (1.5-2.5); SODIUM (NA) 149 MEQ/L (136-145); TOTAL BILIRUBIN ADULT 0.4 MG/DL (0.2-1.0)
[2017-09-12] MEDS: FAMOTIDINE 20 MG/2 ML VIAL IV PUSH SCH ×2 (08:19→20:36)
[2017-09-12] MEDS: CARVEDILOL 3.125 MG TAB PO SCH ×2 (08:19→21:00)
[2017-09-12] MEDS: CHLORHEXIDINE 0.12% (ORAL KIT) 15 ML CUP MT SCH ×2 (08:20→20:00)
[2017-09-12] MEDS: ENOXAPARIN SODIUM 40 MG/0.4 ML SYRINGE SQ SCH (08:20)
[2017-09-12] MEDS: ASPIRIN 81 MG CHEW TAB CHEW SCH (08:20)
[2017-09-12] MEDS: AZITHROMYCIN INJ 500 MG in SODIUM CHLOR 0.9% 250 ML INJ 250 ML IV SCH (08:34)
--- NOTE | 2017-09-12 09:07 | HHI.CCPN ---
Subjective Remarks/Hospital Course Patient is a 67-year-old female with past medical history significant for severe COPD on home oxygen, continued tobacco abuse, questionable history of pulmonary embolism in the past who was brought into the emergency department after sustaining a PEA cardiac arrest. According to the patient had been increasingly short of breath for the last few days particularly was since yesterday. She refused to go to her physician. Today while taking a breathing treatment she suddenly collapsed and became unresponsive. Her started CPR and called 911 and when paramedics arrived the patient was in PEA cardiac arrest. CPR was initiated and Combi tube was placed. The patient received 4 rounds of epinephrine and 2 amps of sodium bicarb with ROSC in the field. In the ED Combitube was replaced with endotracheal tube, and after intubation the patient was noted to be pulseless. CPR was initiated, the patient was provided 1 amp of epinephrine and 1 amp of sodium bicarb with ROSC. Lab work showed mostly CBC and chemistry unremarkable, lactic acid was 13.6, blood sugar was 234. ABG in the ER showed 7.07/68/313. Chest x-ray showed questionable mediastinal widening. CT angiogram of the thorax ruled out any dissection and also pulmonary embolism was ruled out as she has history of PE but a previous H& P. CT of the brain showed diffuse cerebral edema consistent with severe anoxic brain injury I evaluated the patient in the ICU. With propofol turned off patient does not have spontaneous eye opening or any spontaneous movements. No response to painful stimuli. Pupillary reaction is sluggish. To deep visceral pain that is no withdrawal. I discussed with patients and stepson I explained to them I do not recommend induced hypothermia for neuro protection due to the evidence of irreversible anoxic brain injury on CAT scan, and also due to the fact that it is a primary respiratory arrest. They expressed good understanding however wants to continue supportive care for 24-48 hours to see whether this is an improvement.. Patient had been placed on scheduled IV Solu- Medrol, scheduled breathing treatments, and empiric cefepime. I believe the respiratory arrest/hypercapnia led to the PEA cardiac arrest. SUBJ 09/11/17: Patient remains severely encephalopathy. No response to painful stimuli no corneals no pupillary reflex. Trey high fever 102.4. Pancultures sent are pending at this time. and stepson at the bedside updated. Patient remains critical with minimal chance of meaningful neurological recovery. EEG shows background showed diffuse attenuation, low-amplitude consistent with delta waves only. Most likely secondary to severe anoxic brain injury. 09/12: Remains orally intubated on mechanical ventilation. No change in neurologic status. Remains encephalopathic with severe anoxic brain injury. Objective Vital Signs Date Time Temp Pulse Resp B/P (MAP) Pulse Ox O2 Delivery O2 Flow Rate FiO2 09/12/17 08:00 96.5 60 18 94/63 (73) 93 09/12/17 07:33 70 09/10/17 09:03 Ventilator Intake and Output 09/12/17 09/12/17 09/13/17 08:00 16:00 00:00 Intake Total 2002 ml Output Total 450.0 ml Balance 1552.0 ml Result Diagram: 09/12/17 0533 09/12/[address] head shows diffuse cerebral edema consistent with anoxic brain injury Objective Remarks GENERAL: 67-year-old female who is comatose unresponsive SKIN: Warm and dry HEAD: Atraumatic. Normocephalic. EYES: Pupils equal, 3mm, nonreactive. No corneal reflex ENT: Orotracheally intubated. No cough or gag NECK: Trachea midline. No JVD. CARDIOVASCULAR: S1-S2 regular, no gallop or murmur RESPIRATORY: No spontaneous respirations. Combitube in place. GASTROINTESTINAL: Abdomen distended. Tympanic MUSCULOSKELETAL: No obvious deformities. No clubbing. NEUROLOGICAL: GCS 3T. Pupils equal, 3mm, nonreactive. No corneal reflex. No withdrawal to deep visceral pain. No spontaneous eye opening, no spontaneous movements. A/P Assessment and Plan NEURO: Acute anoxic brain injury Severe encephalopathy secondary to anoxia -CT of the head shows evidence of anoxic brain injury -EEG shows background showed diffuse attenuation, low-amplitude consistent with delta waves only. Most likely secondary to severe anoxic brain injury -Family wants to give the patient 24-48 hours, also request neurology opinion -Due to poor neuro exam, primary respiratory arrest and evidence of cerebral edema, severe anoxic injury patient is deemed not a candidate for induced hypothermia -Supplement thiamine -Toxicology screen negative RESP: Acute hypercarbic and hypoxemic respiratory failure Acute COPD exacerbation, without evidence of pneumonia -Continue mechanical ventilation PRVC/AC mode -DuoNeb every 6 hours scheduled and as needed -IV Solu-Medrol 60 mg every 8 hours -Empiric cefepime. Add Flagyl to cover for aspiration, single dose of vancomycin -Follow-up sputum culture -Unable to perform SBT or extubation due to severe encephalopathy CV: PEA arrest Elevated troponin Acute metabolic acidosis -Cardiac arrest secondary to severe respiratory acidosis, respiratory arrest -Troponin elevation could be secondary to cardiac arrest. Start aspirin Coreg -No indication for cardiology consult due to poor neurological status, anoxic brain injury -Limited bedside echo preserved LV function, no evidence of significant pericardial effusion -CT angiogram chest negative for aortic dissection -Patient is hypertensive now use as needed hydralazine avoid beta blockers at this time due to PEA arrest -Normal saline s/p 2 L bolus and 75 ml per hour GI: Mild transaminitis -N.p.o., IV famotidine -Start tube feeds with Jevity : -Monitor renal function closely. Noriega catheter. -IV hydration as above ID: Fever leukocytosis Sepsis -Empiric cefepime for COPD exacerbation. Flagyl to cover for aspiration, give single dose of Vanco -Follow-up on blood urine and sputum cultures HEME: Macrocytosis -Monitor CBC, CMP, coags ENDO: Hypernatremia Hyperglycemia -Electrolyte replacement per protocol -Sliding scale insulin for hyperglycemia PROPH: -Bilateral lower extremity SCDs. Lovenox/Pepcid LINES: -Utilize peripheral IVs, central line if needed CC time 35 min Patient remains critically ill with acute encephalopathy severe anoxic brain injury. CT of the head and EEG consistent with anoxic brain injury. wants to give another 24-48 hours also get neurology input. Hypothermia could be neuro versus infectious. Overall prognosis poor Chito Lopez MD September 12, 2017 09:07
--- NOTE | 2017-09-12 11:13 | PD.CONS ---
Consult Service Palliative Care Consult Requested By Dr. Gomez . Primary Care Physician Unknown Reason for Consultation a. To assist with evaluation and management of symptoms including: Encephalopathy, dyspnea b. To assist medical decision maker(s) with: better understanding of current medical conditions; weighing benefits/burdens of medical treatment options; making medical treatment decisions. HPI History of Present Illness This 67-year-old patient presented to the ED on 09/10/17 around 8 AM, via EMS. Status post out of hospital cardiac arrest. EMS reported patient with increasing shortness of breath that morning and then became unresponsive, her activated EMS, at EMS arrival patient found in PEA arrest. CPR was initiated Combitube was placed. Patient with ROSC in the field. At arrival to the ED patient with palpable carotid pulse. In the ED tube combi was exchanged for endotracheal tube. Postintubation patient again pulseless with CPR initiated again. ROSC after 1 round of epi and bicarb. * Patient arrived to the ED and reports were 3 days patient with worsening shortness of breath. She uses O2 at night. That morning prior to episode she was giving her own nebulizer treatments she went to the restroom and upon returning to bed while doing respiratory treatment became unresponsive. activated EMS. WBC 8.2, CBC unremarkable. Cardiac enzymes negative. Lactic acid 13.6. CXR= widened superior mediastinum new from prior exam, recommended further evaluation with contrast-enhanced CT. ET tube appropriate position. * CT angiogram of chest ruled out dissection and also no PE. CT brain= diffuse cerebral edema consistent with severe anoxic brain injury. Patient admitted to ICU. With sedation off patient not moving, no eye opening. Pupils sluggish. Intensivists documents discussion with family does not recommend hypothermia for neuro protection due to evidence of irreversible anoxic brain injury, also due to the fact that this was a primary respiratory arrest. They expressed understanding however wanted to continue other supportive care for 24-48 hours to monitor for improvement. Critical care believes respiratory arrest hypercapnia led to PEA cardiac arrest. EEG pending. * EEG done 09/10= artifact difficult to interpret background rhythm. Photic stimulation did not elicit driving response. Paralytic noted given artifact subsided and background showed diffuse attenuation low amplitude consistent with delta waves only. Likely this is due to severe disturbance of cerebral function such as anoxia. No epileptic activity. * Patient remains encephalopathic with no response to painful stimuli no corneal or pupillary reflex is noted. Febrile 102.4. Nicole cultures obtained. Hyperthermia infectious versus neuro. Minimal chance of meaningful neurologic recovery. Likely severe anoxic brain injury. * Remains encephalopathic. Palliative care consulted to assist with clarification of goals of treatment. Patient seen in room multiple family members at bedside. Nonresponsive to neuro exam-no response to pain stimuli. No pupil reflex. No corneal reflex. Over breathes the ventilator rate by 1 with ET tube stimulation. On no sedation. Met with family at length, see family conference for additional detail. Discussed with primary nurse. Neurology consulted, examined patient while I was meeting with family, discussed with neurology will obtain a repeat EEG though clinical exam and diagnostics up until this point indicate likely severe anoxic injury patient if she can survive would likely remain in a vegetative state. . Function/Cognitive Trajectory Lives at home with spouse, independent with all ADLs/no cognitive or functional deficits. Review of Systems ROS Limitations: Clinical Condition, Intubated, Unresponsive Constitutional: DENIES: Pain Respiratory: COMPLAINS OF: Cough, Shortness of breath (per ) Past Family Social History Coded Allergies: codeine (Unverified Adverse Reaction, Mild, NAUSEA, 09/10/17) Past Medical History Recent pulmonary embolus left lung Degenerative joint disease COPD Hypertension Hypothyroid . Past Surgical History Sinus surgery Fatty tumor removal left breast . Reported Medications Deltasone (Prednisone) 20 Mg Tab 40 Mg PO DAILY 10 Days Azithromycin 250 Mg Tab 250 Mg PO DAILY 4 Days Albuterol Neb (Albuterol Sulfate) 2.5 Mg/3 Ml Neb 2.5 Mg NEB Q4HR NEB PRN Oxygen tank (Oxygen) 1 Ea Tank 2 Liter CRISTA.CANULA CONTINUOUS Oxygen Concentrator Portable Gaseous 2 L/min via Nasal Cannula Continuous For 99 months Naprosyn (Naproxen) 500 Mg Tab 500 Mg PO DAILY Aspirin 81 Mg Chew 81 Mg CHEW DAILY Proventil Hfa 6.7 GM Inh (Albuterol Sulfate) 90 Mcg/Act Aer 2 Puff INH Q4H PRN Zoloft (Sertraline HCl) 100 Mg Tab 100 Mg PO DAILY Synthroid (Levothyroxine Sodium) 50 Mcg Tab 50 Mcg PO DAILY . Current Medications Medications (Trade) Dose Ordered Sig/Meenu Route Start Time Stop Time Status Last Admin Propofol 100 ml @ 0 mls/hr TITRATE PRN IV 09/10/17 09:00 09/10/17 18:25 Sodium Chloride 1,000 ml @ 75 mls/hr [id number] IV 09/10/17 10:00 09/12/17 05:53 (NS Flush) 2 ml UNSCH PRN IV FLUSH 09/10/17 09:30 (NS Flush) 2 ml BID IV FLUSH 09/10/17 21:00 09/12/17 08:19 (Duoneb Neb) 1 ampule Q4HR NEB NEB 09/10/17 12:00 09/12/17 07:33 (Duoneb Neb) 1 ampule Q4HR NEB PRN INH 09/10/17 09:30 (Peridex 0.12% Liq) 15 ml BID@08,20 MT 09/10/17 20:00 09/12/17 08:20 (Pepcid Inj) 20 mg Q12HR IV PUSH 09/10/17 21:00 09/12/17 08:19 (Lovenox Inj) 40 mg Q24H SQ 09/10/17 10:00 09/12/17 08:20 ([facility] Nursing Information) 1 [id number] XX 09/10/17 09:30 09/10/17 10:30 (Chlorhexidine 2% Cloth) 3 pack Taper DAILY@04 TOP 09/11/17 04:00 09/07/18 03:59 (Chlorhexidine 2% Cloth) 3 pack UNSCH PRN TOP 09/10/17 09:30 (SoluMEDROL INJ) 60 mg Q6H IV PUSH 09/10/17 15:00 09/12/17 08:19 Cefepime HCl 2000 mg/Sodium Chloride 100 ml @ 200 mls/hr Q8H IV 09/10/17 12:00 09/12/17 05:52 Azithromycin 500 mg/Sodium Chloride 250 ml @ 250 mls/hr Q24H IV 09/10/17 11:00 09/12/17 08:34 (NovoLOG SUPPLEMENTAL SCALE) 1 Q4H SQ 09/10/17 10:00 (D50w (Vial) Inj) 50 ml UNSCH PRN IV PUSH 09/10/17 10:15 (Glucagon Inj) 1 mg UNSCH PRN OTHER 09/10/17 10:15 Thiamine HCl 100 mg/Sodium Chloride 101 ml @ 101 mls/hr Q24H IV 09/10/17 13:00 09/11/17 13:05 (Apresoline Inj) 20 mg Q4H PRN IV PUSH 09/10/17 10:45 09/10/17 17:22 Nicardipine HCl 25 mg/Sodium Chloride 250 ml @ 50 mls/hr TITRATE PRN IV 09/10/17 11:15 Pharmacy Profile Note ml @ 0 mls/hr UNSCH OTHER 09/11/17 10:30 Vancomycin HCl 1250 mg/Sodium Chloride 262.5 ml @ 250 mls/hr Q12H IV 09/11/17 12:00 09/12/17 00:43 ([facility] Pharmacy Ordered Lab Info) SPECIFIC LAB TO BE DRAWN:VANCO TROUGH DATE... ONCE ONCE .XX 09/13/17 11:45 09/13/17 11:46 (Tylenol) 650 mg Q6H PRN PO 09/11/17 11:00 09/11/17 17:40 Metronidazole 100 ml @ 100 mls/hr Q8H IV 09/11/17 14:00 09/12/17 05:53 (Aspirin Chew) 81 mg DAILY CHEW 09/11/17 14:00 09/12/17 08:20 (Coreg) 3.125 mg Q12HR PO 09/11/17 14:00 09/11/17 14:13 (Trandate Inj) 20 mg Q4H PRN IV PUSH 09/11/17 18:00 Family History Father with lung cancer Substance Use Tobacco: Former heavy smoker, now 2-3 cigarettes a day Alcohol: Drinks a bloody Luz at night Prescription med abuse: None reported Illicits: None reported . Psychosocial History Lives at home with her . Originally from [place] though has lived here for most of her life. Supported by multiple extended family members as well. 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 Spiritual/Cultural Factors [employer], their personal behavioral instructor has been in with patient and family they does not desire hospital wastewater treatment plant attendant at this time. Living Will: Never completed Health Care Surrogate: Never completed Durable Power of Aerodynamics Engineer: Never completed Ethical and Legal Issues Patient unable to participate in decision-making likely suffered anoxic brain injury. Does not have advanced directives. Per [place] statutes would be appropriate legal proxy. Physical Exam Vital Signs Date Time Temp Pulse Resp B/P (MAP) Pulse Ox O2 Delivery O2 Flow Rate FiO2 5/14/18 10:00 59 09/12/17 08:00 70 09/12/17 08:00 60 09/12/17 08:00 96.5 60 18 94/63 (73) 93 09/12/17 07:33 95 70 09/12/17 06:00 61 09/12/17 04:00 97.3 68 18 101/66 (78) 93 09/12/17 04:00 70 09/12/17 04:00 68 09/12/17 03:26 93 70 09/12/17 02:00 67 09/12/17 00:00 98.8 76 18 96/57 (70) 92 09/12/17 00:00 67 09/12/17 00:00 70 09/11/17 23:06 93 70 09/11/17 22:00 79 09/11/17 20:10 93 70 09/11/17 20:00 100.8 79 18 96/58 (71) 93 09/11/17 20:00 70 09/11/17 20:00 79 09/11/17 19:04 18 09/11/17 19:00 86 18 135/72 (93) 92 09/11/17 18:00 92 09/11/17 18:00 92 17 161/86 (111) 92 09/11/17 17:00 98 18 177/89 (118) 95 09/11/17 16:00 70 09/11/17 16:00 96 70 09/11/17 16:00 98 09/11/17 16:00 102.4 98 21 173/91 (118) 96 09/11/17 15:00 105 18 165/84 (111) 96 09/11/17 14:00 109 09/11/17 14:00 109 19 155/81 (105) 95 09/11/17 13:00 108 18 152/79 (103) 94 09/11/17 12:00 70 09/11/17 12:00 102.4 106 22 161/84 (109) 94 09/11/17 12:00 106 09/11/17 11:12 93 70 09/11/17 11:00 97 23 159/82 (107) 92 09/12/17 09/13/17 18:59 06:59 Output Total 0 ml Balance 0 ml Tube Feeding Residual Discard 0 ml Exam CONSTITUTIONAL/GENERAL: This is a well nourished patient, nonresponsive on mechanical vent TUBES/LINES/DRAINS: Multiple peripheral IVs left upper extremity, ET tube, OG tube, Noriega catheter, soft wrist restraints SKIN: No jaundice, rashes, or lesions. No wounds seen anteriorly. Skin cool, dry. Pale. Not diaphoretic. HEAD: Atraumatic. Normocephalic. EYES: Pupils 4 mm nonreactive to light. no scleral icterus. No injection or drainage. Fundi not examined. ENT: Nose without bleeding or purulent drainage. Unable to visualize oropharynx secondary to ET tube, OG tube. NECK: Trachea midline. Supple, nontender. No palpable thyroid enlargement or nodularity. CARDIOVASCULAR: Regular rate and rhythm without murmur. Bradycardic in the 50s. No JVD. Peripheral pulses symmetric. Trace peripheral edema. RESPIRATORY/CHEST: Symmetric, unlabored respirations via mechanical vent. Clear to auscultation. Breath sounds equal bilaterally. GASTROINTESTINAL: Abdomen soft, round, non-tender, nondistended. No hepato- splenomegaly, or palpable masses. No guarding. Bowel sounds hypoactive. Tube feed infusing via OG tube GENITOURINARY: Without palpable bladder distension. Noriega catheter in place clear yellow urine. MUSCULOSKELETAL: Extremities without clubbing, cyanosis. Trace peripheral edema. No mottling or clubbing. LYMPHATICS: No palpable cervical or supraclavicular adenopathy. NEUROLOGICAL: Not on sedation. Nonresponsive to exam. No withdrawal to pain stimuli. No eye opening/ pupils nonreactive. PSYCHIATRIC: No obvious anxiety--limited assessment secondary to clinical condition. . Diagnostic Tests Laboratory Laboratory Tests Test 09/10/17 08:34 09/10/17 08:46 09/10/17 10:05 09/10/17 11:36 White Blood Count 8.2 TH/MM3 (4.0-11.0) Red Blood Count 3.83 MIL/MM3 (4.00-5.30) Hemoglobin 12.8 GM/DL (11.6-15.3) Hematocrit 40.1 % (35.0-46.0) Mean Corpuscular Volume 104.6 FL (80.0-100.0) Mean Corpuscular Hemoglobin 33.4 PG (27.0-34.0) Mean Corpuscular Hemoglobin Concent 31.9 % (32.0-36.0) Red Cell Distribution Width 16.0 % (11.6-17.2) Platelet Count 223 TH/MM3 (150-450) Mean Platelet Volume 9.1 FL (7.0-11.0) Neutrophils (%) (Auto) 46.0 % (16.0-70.0) Lymphocytes (%) (Auto) 38.8 % (9.0-44.0) Monocytes (%) (Auto) 6.3 % (0.0-8.0) Eosinophils (%) (Auto) 8.5 % (0.0-4.0) Basophils (%) (Auto) 0.4 % (0.0-2.0) Neutrophils # (Auto) 3.8 TH/MM3 (1.8-7.7) Lymphocytes # (Auto) 3.2 TH/MM3 (1.0-4.8) Monocytes # (Auto) 0.5 TH/MM3 (0-0.9) Eosinophils # (Auto) 0.7 TH/MM3 (0-0.4) Basophils # (Auto) 0.0 TH/MM3 (0-0.2) CBC Comment AUTO DIFF Differential Total Cells Counted 100 Neutrophils % (Manual) 38 % (16-70) Band Neutrophils % 6 % (0-6) Lymphocytes % 39 % (9-44) Monocytes % 4 % (0-8) Eosinophils % 9 % (0-4) Basophils % 1 % (0-2) Neutrophils # (Manual) 3.8 TH/MM3 (1.8-7.7) Myelocytes 2 % (0-0) Differential Comment FINAL DIFF MANUAL Atypical Lymphocytes % (0-0) Plasma Cells 1 % (0-0) Platelet Estimate NORMAL (NORMAL) Platelet Morphology Comment NORMAL (NORMAL) Prothrombin Time 11.4 SEC (9.8-11.6) Prothromb Time International Ratio 1.1 RATIO Activated Partial Thromboplast Time 33.8 SEC (24.3-30.1) Urine Color YELLOW (YELLW/STRAW) Urine Turbidity HAZY (CLEAR) Urine pH 6.5 (5.0-8.5) Urine Specific [place] 1.010 (1.002-1.035) Urine Protein 100 mg/dL (NEG-TRACE) Urine Glucose (UA) NEG mg/dL (NEG) Urine Ketones NEG mg/dL (NEG) Urine Occult Blood MOD (NEG) Urine Nitrite NEG (NEG) Urine Bilirubin NEG (NEG) Urine Urobilinogen LESS THAN 2.0 MG/DL (LESS Urine Leukocyte Esterase NEG (NEG) Urine RBC 66 /hpf (0-3) Urine WBC 3 /hpf (0-5) Urine Squamous Epithelial Cells 3 /hpf (0-5) Urine Amorphous Sediment MOD Urine Bacteria FEW /hpf (NONE) Urine Hyaline Casts 8 /lpf (RARE) Urine Mucus FEW /lpf (OCC) Microscopic Urinalysis Comment CATH-CULTURE IND Blood Urea Nitrogen 10 MG/DL (7-18) Creatinine 0.88 MG/DL (0.50-1.00) Random Glucose 234 MG/DL (74-106) Total Protein 6.1 GM/DL (6.4-8.2) Albumin 3.0 GM/DL (3.4-5.0) Calcium Level 8.3 MG/DL (8.5-10.1) Alkaline Phosphatase 96 U/L (45-117) Aspartate Amino Transf (AST/SGOT) 40 U/L (15-37) Alanine Aminotransferase (ALT/SGPT) 19 U/L (10-53) Total Bilirubin 0.1 MG/DL (0.2-1.0) Sodium Level 148 MEQ/L (136-145) Potassium Level 3.9 MEQ/L (3.5-5.1) Chloride Level 107 MEQ/L (98-107) Carbon Dioxide Level 23.5 MEQ/L (21.0-32.0) Anion Gap 18 MEQ/L (5-15) Estimat Glomerular Filtration Rate 64 ML/MIN (>89) Lactic Acid Level 13.6 mmol/L (0.4-2.0) 2.9 mmol/L (0.4-2.0) Total Creatine Kinase 151 U/L (26-192) Creatine Kinase MB 2.3 NG/ML (0.5-3.6) Troponin I LESS THAN 0.02 NG/ML Urine Opiates Screen NEG (NEG) Urine Barbiturates Screen NEG (NEG) Urine Amphetamines Screen NEG (NEG) Urine Benzodiazepines Screen NEG (NEG) Urine Cocaine Screen NEG (NEG) Urine Cannabinoids Screen NEG (NEG) Blood Gas Puncture Site LT RADIAL Blood Gas Patient Temperature 98.6 Blood Gas HCO3 19 mmol/L (22-26) Blood Gas Base Excess -10.1 mmol/L (-2-2) Blood Gas Oxygen Saturation 96 % (90-100) Arterial Blood pH 7.07 (7.380-7.420) Arterial Blood Partial Pressure CO2 68 mmHg (38-42) Arterial Blood Partial Pressure O2 313 mmHG (61-120) Arterial Blood Oxygen Content 19.0 Vol % (12.0-20.0) Arterial Blood Carboxyhemoglobin 2.2 % (0-4) Arterial Blood Methemoglobin 0.7 % (0-2) Blood Gas Hemoglobin 13.5 G/DL (12.0-16.0) Oxygen Delivery Device VENTILATOR Blood Gas Ventilator Setting PRVC/AC Blood Gas Inspired Oxygen 100 % Nasal Screen MRSA (PCR) MRSA NOT DETECTED (NOT Test 09/10/17 15:24 09/10/17 21:23 09/11/17 03:48 09/11/17 08:19 Total Creatine Kinase 718 U/L (26-192) 940 U/L (26-192) Creatine Kinase MB 20.1 NG/ML (0.5-3.6) 17.5 NG/ML (0.5-3.6) Creatine Kinase MB % 2.8 % (0.0-4.0) 1.9 % (0.0-4.0) Troponin I 0.60 NG/ML (0.02-0.05) 0.84 NG/ML (0.02-0.05) Thyroid Stimulating Hormone 3rd Gen 1.320 uIU/ML (0.358-3.740) Magnesium Level 1.6 MG/DL (1.5-2.5) White Blood Count 21.3 TH/MM3 (4.0-11.0) Red Blood Count 4.64 MIL/MM3 (4.00-5.30) Hemoglobin 15.3 GM/DL (11.6-15.3) Hematocrit 46.0 % (35.0-46.0) Mean Corpuscular Volume 99.0 FL (80.0-100.0) Mean Corpuscular Hemoglobin 33.1 PG (27.0-34.0) Mean Corpuscular Hemoglobin Concent 33.4 % (32.0-36.0) Red Cell Distribution Width 15.4 % (11.6-17.2) Platelet Count 200 TH/MM3 (150-450) Mean Platelet Volume 9.0 FL (7.0-11.0) Neutrophils (%) (Auto) 92.3 % (16.0-70.0) Lymphocytes (%) (Auto) 1.8 % (9.0-44.0) Monocytes (%) (Auto) 5.8 % (0.0-8.0) Eosinophils (%) (Auto) 0.0 % (0.0-4.0) Basophils (%) (Auto) 0.1 % (0.0-2.0) Neutrophils # (Auto) 19.7 TH/MM3 (1.8-7.7) Lymphocytes # (Auto) 0.4 TH/MM3 (1.0-4.8) Monocytes # (Auto) 1.2 TH/MM3 (0-0.9) Eosinophils # (Auto) 0.0 TH/MM3 (0-0.4) Basophils # (Auto) 0.0 TH/MM3 (0-0.2) CBC Comment DIFF FINAL Differential Comment Blood Urea Nitrogen 18 MG/DL (7-18) Creatinine 0.77 MG/DL (0.50-1.00) Random Glucose 137 MG/DL (74-106) Total Protein 7.2 GM/DL (6.4-8.2) Albumin 3.5 GM/DL (3.4-5.0) Calcium Level 8.3 MG/DL (8.5-10.1) Alkaline Phosphatase 100 U/L (45-117) Aspartate Amino Transf (AST/SGOT) 237 U/L (15-37) Alanine Aminotransferase (ALT/SGPT) 35 U/L (10-53) Total Bilirubin 0.3 MG/DL (0.2-1.0) Sodium Level 147 MEQ/L (136-145) Potassium Level 3.7 MEQ/L (3.5-5.1) Chloride Level 112 MEQ/L (98-107) Carbon Dioxide Level 25.3 MEQ/L (21.0-32.0) Anion Gap 10 MEQ/L (5-15) Estimat Glomerular Filtration Rate 74 ML/MIN (>89) Vitamin B12 Level 347 PG/ML (193-986) Blood Gas Puncture Site RT RADIAL Blood Gas Patient Temperature 98.6 Blood Gas HCO3 25 mmol/L (22-26) Blood Gas Base Excess 0.8 mmol/L (-2-2) Blood Gas Oxygen Saturation 92 % (90-100) Arterial Blood pH 7.39 (7.380-7.420) Arterial Blood Partial Pressure CO2 43 mmHg (38-42) Arterial Blood Partial Pressure O2 76 mmHg (61-120) Arterial Blood Oxygen Content 19.7 Vol % (12.0-20.0) Arterial Blood Carboxyhemoglobin 0.7 % (0-4) Arterial Blood Methemoglobin 1.6 % (0-2) Blood Gas Hemoglobin 15.2 G/DL (12.0-16.0) Oxygen Delivery Device VENTILATOR Blood Gas Ventilator Setting [facility]/AC550/18 Blood Gas Inspired Oxygen 70 % Test 09/12/17 05:33 White Blood Count 12.8 TH/MM3 (4.0-11.0) Red Blood Count 3.85 MIL/MM3 (4.00-5.30) Hemoglobin 12.8 GM/DL (11.6-15.3) Hematocrit 38.1 % (35.0-46.0) Mean Corpuscular Volume 99.0 FL (80.0-100.0) Mean Corpuscular Hemoglobin 33.3 PG (27.0-34.0) Mean Corpuscular Hemoglobin Concent 33.6 % (32.0-36.0) Red Cell Distribution Width 15.5 % (11.6-17.2) Platelet Count 146 TH/MM3 (150-450) Mean Platelet Volume 9.1 FL (7.0-11.0) Neutrophils (%) (Auto) 92.9 % (16.0-70.0) Lymphocytes (%) (Auto) 2.6 % (9.0-44.0) Monocytes (%) (Auto) 4.5 % (0.0-8.0) Eosinophils (%) (Auto) 0.0 % (0.0-4.0) Basophils (%) (Auto) 0.0 % (0.0-2.0) Neutrophils # (Auto) 11.9 TH/MM3 (1.8-7.7) Lymphocytes # (Auto) 0.3 TH/MM3 (1.0-4.8) Monocytes # (Auto) 0.6 TH/MM3 (0-0.9) Eosinophils # (Auto) 0.0 TH/MM3 (0-0.4) Basophils # (Auto) 0.0 TH/MM3 (0-0.2) CBC Comment DIFF FINAL Differential Comment Blood Urea Nitrogen 19 MG/DL (7-18) Creatinine 0.55 MG/DL (0.50-1.00) Random Glucose 149 MG/DL (74-106) Total Protein 6.0 GM/DL (6.4-8.2) Albumin 2.4 GM/DL (3.4-5.0) Calcium Level 7.8 MG/DL (8.5-10.1) Magnesium Level 1.7 MG/DL (1.5-2.5) Alkaline Phosphatase 69 U/L (45-117) Aspartate Amino Transf (AST/SGOT) 212 U/L (15-37) Alanine Aminotransferase (ALT/SGPT) 33 U/L (10-53) Total Bilirubin 0.4 MG/DL (0.2-1.0) Sodium Level 149 MEQ/L (136-145) Potassium Level 3.0 MEQ/L (3.5-5.1) Chloride Level 116 MEQ/L (98-107) Carbon Dioxide Level 24.8 MEQ/L (21.0-32.0) Anion Gap 8 MEQ/L (5-15) Estimat Glomerular Filtration Rate 110 ML/MIN (>89) Result Diagram: 09/12/1753209/12/1733 Microbiology Microbiology Date/Time Source Procedure Growth Status 09/10/17 08:34 Blood Peripheral Aerobic Blood Culture - Preliminary NO GROWTH IN 1 DAY Resulted 09/10/17 08:34 Blood Peripheral Anaerobic Blood Culture - Preliminary NO GROWTH IN 1 DAY Resulted 09/10/17 08:29 Blood Peripheral Aerobic Blood Culture - Preliminary NO GROWTH IN 1 DAY Resulted 09/10/17 08:29 Blood Peripheral Anaerobic Blood Culture - Preliminary NO GROWTH IN 1 DAY Resulted 09/10/17 12:50 Sputum Endotracheal Gram Stain - Final Resulted 09/10/17 12:50 Sputum Endotracheal Sputum Culture - Preliminary IMMATURE GROWTH - REINCUBATE Resulted 09/10/17 08:34 Urine Catheterized Urine Urine Culture - Final NO GROWTH IN 48 HOURS. Complete Patient/Family Conference Family Conference Time (mins): 40 Family Conference Location: Consult Room Issues Discussed: Met with patient , [id number], sons, sister, behavioral instructor at length incompetence room discussion included: * Palliative care role, purpose, approach * Additional medical, psychosocial, and spiritual history * Patients general health, functional status, and cognitive changes in the months leading up to the current hospitalization * Patient/family understanding of the current medical problems * Patient/family understanding of prognosis * Patients goals of care as best understood from advance directives and/or conversations and/or values * Current medical treatment options and benefits/burdens of those options * Likely scenarios comparing ongoing aggressive care with a transition to comfort measures only/review of withdrawal of life support and anticipatory guidance * CODE STATUS * Legal decision makers * Questions answered to the best of my ability * Palliative care contact information provided awaiting daughter to arrive from [place] later this evening, as well as repeat EEG per neurology. If no significant improvement in neurological assessment or EEG will want to proceed with compassionate withdrawal of life support and transition to comfort focus only tomorrow . He indicates that if she cannot make near full neurologic recovery and would only survive to live in a vegetative state that she would not want to proceed with any artificial prolonging measures. In the meantime he requests no escalation of treatment no pressors or treatment for bradycardia, and should the patient significantly deteriorate he wants to ensure that she is comfortable. . Assessment and Plan Disease Oriented Problem List: (1) Community acquired pneumonia (2) Acute respiratory failure with hypoxia (3) Chronic obstructive pulmonary disease (4) PEA (Pulseless electrical activity) (5) Mediastinal widening (6) Lactic acidemia (7) Anoxic brain damage (8) Anoxic cerebral edema Symptom Scale: (1) Dyspnea 0-10 Scale: Unable to quantify (2) Encephalopathy 0-10 Scale: Unable to quantify Pertinent Non-Medical Issues Psychosocial:Lives at home with her . Originally from [place] though has lived here for most of her life. Supported by multiple extended family members as well. 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 Spiritual:[employer], their personal behavioral instructor has been in with patient and family they does not desire hospital wastewater treatment plant attendant at this time. Legal:Patient unable to participate in decision-making likely suffered anoxic brain injury. Does not have advanced directives. Per [place] statutes would be appropriate legal proxy. Ethical issues impacting care: No ethical issues identified Important Contacts Sinan Philip [phone] . Prognosis This patient suffered out of hospital PEA arrest believed to be secondary to respiratory failure. Has likely sustained severe anoxic brain injury. Chances of meaningful neurologic recovery are minimal. . Code Status: Alternative Code (Intubation only) Plan Legal decision maker:Patient unable to participate in decision-making likely suffered anoxic brain injury. Does not have advanced directives. Per [place] statutes would be appropriate legal proxy. Goals: awaiting daughter to arrive from [place] later this evening, as well as repeat EEG per neurology. If no significant improvement in neurological assessment or EEG will want to proceed with compassionate withdrawal of life support and transition to comfort focus only tomorrow . In the meantime he requests no escalation of treatment no pressors or treatment for bradycardia, and should the patient significantly deteriorate he wants to ensure that she is comfortable. CODE STATUS: ALT code intubation only. /proxy requested no pressors, if patient becomes bradycardic or hypotensive to allow her to pass naturally. SYMPTOMS: --Encephalopathy-status post PEA arrest at home secondary to respiratory arrest. CT with cerebral edema likely anoxic brain injury. EEG also consistent with anoxic brain injury. Nonresponsive to clinical exam on no sedation. --Dyspnea-Combi tube placed in the field, change to ET tube in the emergency department, remains on mechanical vent not expected to be able to medically extubate in current state. Long history of COPD. reports congestion and shortness of breath in the 3 days leading up to the day of arrest. Palliative care will continue to follow during hospital course as condition evolves, to assist patient/decision-maker with understanding of medical conditions, weighing benefits/burdens of treatment options, for clarification of goals of treatment. Additionally will assist with any symptoms of palliative concern Time Spent Total Floor Time (mins): 70 (Chart review, PE, discussion with nurse, discussion with neurology, family meeting) Thank you for the opportunity to participate in the care of Ms. Philip. Attestation To help prompt me to consider important information that might be impacting today's encounter and assessment, information from prior notes written by myself or my colleagues may have been "brought forward" into today's note. My signature on this note, however, is an attestation that I personally performed the exam, history, and/or decision-making noted today, and, unless otherwise indicated, the interactions with patient, family, and staff as well as the review of records all occurred today. I also attest that the listed assessment and stated plan reflect my best clinical judgment today based on the combination of historical information, prior notes, and today's exam/ interactions. When time spent is documented, it refers only to time spent today by the signer, or if indicated, combined time spent today by collaborating physician/nurse practitioner. Katelyn Springer September 12, 2017 11:13
--- NOTE | 2017-09-12 12:29 | MB ---
cc: Yadira Mckinney MD DATE: 09/12/2017 REASON FOR CONSULTATION: Evaluation of encephalopathy. HISTORY OF PRESENT ILLNESS: This is a 67-year-old woman with a history of chronic obstructive pulmonary disease on home O2, smoker, with possible PE brought into the ED after sustaining a PEA cardiac arrest. She had been apparently short of breath for the last few days prior to arrival. She did not go to the doctor. She had a breathing treatment and collapsed at home, became unresponsive. They started CPR and called 911. They found her in PEA arrest. CPR was initiated. She had epinephrine, bicarbonate in the ED. A Combitube was replaced with an ET tube and the patient was noted at that time to be pulseless. CPR was initiated 1 amp epinephrine and 1 amp of bicarbonate was given. CT angiogram of the thorax was done to rule out a dissection due to some widening of the mediastinum on chest x-ray. CT of the brain was performed and showed cerebral edema. Her EEG was performed and it showed significant slowing of background very low-amplitude. Neurology is asked to assess the patient for anoxic encephalopathy. Of note, the patient is not on sedation. PHYSICAL EXAMINATION: VITAL SIGNS: Temperature is 96.5. Prior to that, at 4 a.m. it was 97.3, heart rate 59, respiratory rate 18, blood pressure 94/63, sating at 92%, FIO2 of 70%. GENERAL: She is intubated on the ventilator, does not over breathe the ventilator set at 18. HEENT: Her pupils are fixed and dilated at 4 mm. No reactivity. No corneal reflex. Oculocephalic not seen. No cough or gag with suctioning. Does not follow commands. Does not withdraw. Tone is flaccid. DTRs are absent. Toes are neutral. LABORATORY DATA: Reviewed. White count 12.8, platelets 146,000. Coag panel, PTT 33.8. Chemistries: Sodium 149. Her CK yesterday was 940, trending up. Albumin 214, B12 347, AST 212, ALT 33. Tox screen was negative. Urine, moderate blood, 66 white cells, 3 white cells. IMAGING: Imaging of the brain as stated on the of this month of August, diffuse effacement and loss of holley-white matter differentiation concerning for diffuse edema, sequela likely due to anoxia. Chest x-ray this morning shows subsegmental basilar airspace disease with an increase since 09/11/2017. IMPRESSION: A 67-year-old woman with what looks like a severe anoxic encephalopathy. PLAN: Options are for repeat EEG today. I did order that. However, given her exam, meaningful neurological recovery is unlikely. Certainly after the EEG, consideration of a blood flow scan can be done, a cerebral blood flow scan. However, neurologic recovery given her findings will not occur given her severity. Palliative care on board. Continue current care. Yadira Mckinney MD DF/DL , 12:03 PM , 12:29 PM
[2017-09-12] MEDS: THIAMINE INJ 100 MG in SODIUM CHLORIDE 0.9% INJ 100 ML IV SCH (13:58)
--- NOTE | 2017-09-12 17:36 | ECHRPT ---
Indication: Heart failure, unspecified CONCLUSIONS The transthoracic study is normal by two-dimensional, color flow imaging and Doppler interrogation. very technically limited study, grossly, the left ventricle appears to be of normal size, wall thick ness with EF @ 50% BP: 94 / 63 HR: Rhythm: MEASUREMENTS (Male / Female) Normal Values Technical Quality:Technically difficult study 2D ECHO LV Diastolic Diameter PLAX 4.2 cm 4.2 - 5.9 / 3.9 - 5.3 cm LV Systolic Diameter PLAX 2.9 cm IVS Diastolic Thickness 1.2 cm 0.6 - 1.0 / 0.6 - 0.9 cm LVPW Diastolic Thickness 1.1 cm 0.6 - 1.0 / 0.6 - 0.9 cm LV Relative Wall Thickness 0.6 RV Internal Dim ED PLAX 1.6 cm M-MODE Aortic Root Diameter MM 2.8 cm LA Systolic Diameter MM 2.9 cm LA Ao Ratio MM 1.0 AV Cusp Separation MM 2.1 cm FINDINGS LEFT VENTRICLE Normal left ventricular size and wall thickness. The left ventricular systolic function is normal wi th an estimated ejection fraction in the range of 60-65%. Left ventricular diastolic function parameters a re normal. RIGHT VENTRICLE Normal right ventricular size and systolic function. LEFT ATRIUM The left atrial size is normal. RIGHT ATRIUM The right atrial size is normal. ATRIAL SEPTUM Normal atrial septal thickness without atrial level shunting by limited color doppler interrogation. AORTA The aortic root and proximal ascending aorta are normal in size on limited imaging. MITRAL VALVE Structurally normal mitral valve. No mitral valve stenosis or regurgitation. AORTIC VALVE Trileaflet aortic valve. No aortic valve stenosis or regurgitation. TRICUSPID VALVE Structurally normal tricuspid valve. No tricuspid valve stenosis or regurgitation. PULMONARY VALVE The pulmonary valve is not well visualized. VESSELS The inferior vena cava is normal in size. PERICARDIUM No pericardial effusion. Praful Brothers MD, FACC, [facility] [place] (Electronically Signed) Final Date:12 Sep 2017 17:35
--- NOTE | 2017-09-12 20:36 | MG ---
cc: Juan Antonio Turner MD ELECTROENCEPHALOGRAM RECORD NUMBER: [id number]. CLINICAL HISTORY: This is a 67-year-old with history of cardiac arrest. No sedation. Flat line type of appearance. No driving with photic stimulation. Two microvolts. No significant discernable cortical activity. Single lead EKG showing sinus rhythm. EKG artifact occurring. INTERPRETATION: Flat line appearing EEG suggestive of severe cortical injury. Clinical correlation. MD XAVI Flores/MYRANDA , 07:56 PM , 08:34 PM
[2017-09-13] VITALS (12 sets, daily range): BP systolic 81–105; BP diastolic 51–64; PULSE 55–59; RESP 18; TEMP 94.5–97.9; O2SAT 91–94
[2017-09-13] MEDS: CEFEPIME INJ 2,000 MG in SODIUM CHLORIDE 0.9% INJ 100 ML IV SCH ×2 (02:42→11:50)
[2017-09-13] MEDS: INSULIN ASPART SUPPLEMENTAL SCALE SQ SCH ×4 (02:43→14:00)
[2017-09-13] MEDS: methylPREDNISolone SOD SUCC 125 MG/2 ML VIAL IV PUSH SCH ×3 (02:43→14:52)
[2017-09-13] MEDS: RESP: ALBUTEROL 2.5 MG/IPRATROPIUM 0.5 MG NEB (SCH) NEB ×4 (03:13→15:55)
[2017-09-13] MEDS: metroNIDAZOLE 500 MG INJ 100 ML IV SCH ×2 (04:53→14:00)
[2017-09-13] MEDS: SODIUM CHLOR 0.9% 1000 ML INJ 1,000 ML IV SCH (04:53)
[2017-09-13] MEDS: CARVEDILOL 3.125 MG TAB PO SCH (09:00)
[2017-09-13] MEDS: ASPIRIN 81 MG CHEW TAB CHEW SCH (09:00)
[2017-09-13] MEDS: SODIUM CHLORIDE 0.9% FLUSH 10 ML FLUSH IV FLUSH SCH (09:00)
[2017-09-13] MEDS: FAMOTIDINE 20 MG/2 ML VIAL IV PUSH SCH (09:00)
[2017-09-13] MEDS: CHLORHEXIDINE 0.12% (ORAL KIT) 15 ML CUP MT SCH (09:12)
[2017-09-13] MEDS: ENOXAPARIN SODIUM 40 MG/0.4 ML SYRINGE SQ SCH (10:00)
--- NOTE | 2017-09-13 10:23 | HHI.HCPN ---
Reason for visit a. To assist with evaluation and management of symptoms including: Encephalopathy, dyspnea b. To assist medical decision maker(s) with: better understanding of current medical conditions; weighing benefits/burdens of medical treatment options; making medical treatment decisions. Subjective/Interval History Pt seen to follow up on comfort, goals with family, per their request. Stable overnight, some hypotension ,some bradycardia-- HR 50s, BP 80's/50s. No new labs. No new imaging. S/p repeat EEG yesterday evening: Flat line appearing EEG suggestive of severe cortical injury. Pt seen in room no visitors present, nursing reports they went to waiting room. She is nonresponsive to exam- no pupil response. No gag. No withdrawal to pain. Nursing indicates family still awaiting daughter's arrival from [place], possible this afternoon, and would want to withdraw life support after her arrival. 1600-- f/up with nursing-- family flight delayed, not expected to arrive here until 6pm++, withdrawal probable after family is here and has had time to see pt. (?7-8pm) exhibits b,c in chart. . Family/friend interactions , son returned to room. Met w them at bedside. They indicate they cont to observe pt assessments overnight and were told about repeat EEG findings, review with them current clinical assessment. indicates he is awaiting pt daughter arrival around 2pm, and will want to transition to comfort/ compassionate withdrawal around 4pm today. He requests that she be as comfortable as possible. Anticipatory guidance provided regarding withdrawal process. . Advance Directives Living Will: Never completed Health Care Surrogate: Never completed Durable Power of Crayon Painter: Never completed Objective Vital Signs Date Time Temp Pulse Resp B/P (MAP) Pulse Ox O2 Delivery O2 Flow Rate FiO2 09/13/17 08:00 80 09/13/17 08:00 58 09/13/17 08:00 94.5 58 18 88/51 (63) 92 09/13/17 07:32 93 80 09/13/17 06:00 57 09/13/17 04:00 97.9 57 18 93/55 (68) 91 09/13/17 04:00 57 09/13/17 04:00 80 09/13/17 03:08 93 80 09/13/17 02:00 56 09/13/17 00:00 55 09/13/17 00:00 80 09/13/17 00:00 97.5 55 18 105/64 (78) 92 09/12/17 23:49 93 80 09/12/17 22:00 55 09/12/17 20:28 93 80 09/12/17 20:00 97.3 55 18 119/70 (86) 92 09/12/17 20:00 80 09/12/17 20:00 55 09/12/17 18:00 55 09/12/17 16:01 93 80 09/12/17 16:00 80 09/12/17 16:00 94.3 54 18 124/76 (92) 93 09/12/17 16:00 54 09/12/17 14:00 55 09/12/17 12:00 70 09/12/17 12:00 54 09/12/17 12:00 95.0 54 18 115/72 (86) 91 09/12/17 11:52 92 70 Intake & Output 09/13/17 09/13/17 07:00 19:00 Intake Total 1682.5 ml Output Total 1600 ml Balance 82.5 ml IV Total 1562.5 ml Tube Feeding 120 ml Output Urine Total 1600 ml Tube Feeding Residual Discard 0 ml Physical Exam CONSTITUTIONAL/GENERAL: This is a well nourished patient, nonresponsive on mechanical vent TUBES/LINES/DRAINS: Multiple peripheral IVs left upper extremity, ET tube, OG tube, Noriega catheter, soft wrist restraints EYES: Pupils 4 mm nonreactive to light. no scleral icterus. No injection or drainage. Fundi not examined. CARDIOVASCULAR: Regular rate and rhythm without murmur. Bradycardic in the 50s. No JVD. Peripheral pulses symmetric. Trace peripheral edema. RESPIRATORY/CHEST: Symmetric, unlabored respirations via mechanical vent. Clear to auscultation. Breath sounds equal bilaterally. GASTROINTESTINAL: Abdomen soft, round, unable to determine tenderness 2/2 mental status, nondistended. No palpable masses. Bowel sounds hypoactive. Tube feed infusing via OG tube GENITOURINARY: Without palpable bladder distension. Noriega catheter in place clear yellow urine. NEUROLOGICAL: Not on sedation. Nonresponsive to exam. No withdrawal to pain stimuli. No eye opening/ pupils nonreactive. no gag with ETT stimuli PSYCHIATRIC: No obvious anxiety--limited assessment secondary to clinical condition. . Diagnostic Tests Laboratory Laboratory Tests Test 5/12/18 11:36 09/10/17 15:24 09/10/17 21:23 09/11/17 03:48 Lactic Acid Level 2.9 mmol/L (0.4-2.0) Total Creatine Kinase 718 U/L (26-192) 940 U/L (26-192) Creatine Kinase MB 20.1 NG/ML (0.5-3.6) 17.5 NG/ML (0.5-3.6) Creatine Kinase MB % 2.8 % (0.0-4.0) 1.9 % (0.0-4.0) Troponin I 0.60 NG/ML (0.02-0.05) 0.84 NG/ML (0.02-0.05) Thyroid Stimulating Hormone 3rd Gen 1.320 uIU/ML (0.358-3.740) Magnesium Level 1.6 MG/DL (1.5-2.5) White Blood Count 21.3 TH/MM3 (4.0-11.0) Red Blood Count 4.64 MIL/MM3 (4.00-5.30) Hemoglobin 15.3 GM/DL (11.6-15.3) Hematocrit 46.0 % (35.0-46.0) Mean Corpuscular Volume 99.0 FL (80.0-100.0) Mean Corpuscular Hemoglobin 33.1 PG (27.0-34.0) Mean Corpuscular Hemoglobin Concent 33.4 % (32.0-36.0) Red Cell Distribution Width 15.4 % (11.6-17.2) Platelet Count 200 TH/MM3 (150-450) Mean Platelet Volume 9.0 FL (7.0-11.0) Neutrophils (%) (Auto) 92.3 % (16.0-70.0) Lymphocytes (%) (Auto) 1.8 % (9.0-44.0) Monocytes (%) (Auto) 5.8 % (0.0-8.0) Eosinophils (%) (Auto) 0.0 % (0.0-4.0) Basophils (%) (Auto) 0.1 % (0.0-2.0) Neutrophils # (Auto) 19.7 TH/MM3 (1.8-7.7) Lymphocytes # (Auto) 0.4 TH/MM3 (1.0-4.8) Monocytes # (Auto) 1.2 TH/MM3 (0-0.9) Eosinophils # (Auto) 0.0 TH/MM3 (0-0.4) Basophils # (Auto) 0.0 TH/MM3 (0-0.2) CBC Comment DIFF FINAL Differential Comment Blood Urea Nitrogen 18 MG/DL (7-18) Creatinine 0.77 MG/DL (0.50-1.00) Random Glucose 137 MG/DL (74-106) Total Protein 7.2 GM/DL (6.4-8.2) Albumin 3.5 GM/DL (3.4-5.0) Calcium Level 8.3 MG/DL (8.5-10.1) Alkaline Phosphatase 100 U/L (45-117) Aspartate Amino Transf (AST/SGOT) 237 U/L (15-37) Alanine Aminotransferase (ALT/SGPT) 35 U/L (10-53) Total Bilirubin 0.3 MG/DL (0.2-1.0) Sodium Level 147 MEQ/L (136-145) Potassium Level 3.7 MEQ/L (3.5-5.1) Chloride Level 112 MEQ/L (98-107) Carbon Dioxide Level 25.3 MEQ/L (21.0-32.0) Anion Gap 10 MEQ/L (5-15) Estimat Glomerular Filtration Rate 74 ML/MIN (>89) Vitamin B12 Level 347 PG/ML (193-986) Test 09/11/17 08:19 09/12/17 05:33 Blood Gas Puncture Site RT RADIAL Blood Gas Patient Temperature 98.6 Blood Gas HCO3 25 mmol/L (22-26) Blood Gas Base Excess 0.8 mmol/L (-2-2) Blood Gas Oxygen Saturation 92 % (90-100) Arterial Blood pH 7.39 (7.380-7.420) Arterial Blood Partial Pressure CO2 43 mmHg (38-42) Arterial Blood Partial Pressure O2 76 mmHg (61-120) Arterial Blood Oxygen Content 19.7 Vol % (12.0-20.0) Arterial Blood Carboxyhemoglobin 0.7 % (0-4) Arterial Blood Methemoglobin 1.6 % (0-2) Blood Gas Hemoglobin 15.2 G/DL (12.0-16.0) Oxygen Delivery Device VENTILATOR Blood Gas Ventilator Setting [facility]/AC550/18 Blood Gas Inspired Oxygen 70 % White Blood Count 12.8 TH/MM3 (4.0-11.0) Red Blood Count 3.85 MIL/MM3 (4.00-5.30) Hemoglobin 12.8 GM/DL (11.6-15.3) Hematocrit 38.1 % (35.0-46.0) Mean Corpuscular Volume 99.0 FL (80.0-100.0) Mean Corpuscular Hemoglobin 33.3 PG (27.0-34.0) Mean Corpuscular Hemoglobin Concent 33.6 % (32.0-36.0) Red Cell Distribution Width 15.5 % (11.6-17.2) Platelet Count 146 TH/MM3 (150-450) Mean Platelet Volume 9.1 FL (7.0-11.0) Neutrophils (%) (Auto) 92.9 % (16.0-70.0) Lymphocytes (%) (Auto) 2.6 % (9.0-44.0) Monocytes (%) (Auto) 4.5 % (0.0-8.0) Eosinophils (%) (Auto) 0.0 % (0.0-4.0) Basophils (%) (Auto) 0.0 % (0.0-2.0) Neutrophils # (Auto) 11.9 TH/MM3 (1.8-7.7) Lymphocytes # (Auto) 0.3 TH/MM3 (1.0-4.8) Monocytes # (Auto) 0.6 TH/MM3 (0-0.9) Eosinophils # (Auto) 0.0 TH/MM3 (0-0.4) Basophils # (Auto) 0.0 TH/MM3 (0-0.2) CBC Comment DIFF FINAL Differential Comment Blood Urea Nitrogen 19 MG/DL (7-18) Creatinine 0.55 MG/DL (0.50-1.00) Random Glucose 149 MG/DL (74-106) Total Protein 6.0 GM/DL (6.4-8.2) Albumin 2.4 GM/DL (3.4-5.0) Calcium Level 7.8 MG/DL (8.5-10.1) Magnesium Level 1.7 MG/DL (1.5-2.5) Alkaline Phosphatase 69 U/L (45-117) Aspartate Amino Transf (AST/SGOT) 212 U/L (15-37) Alanine Aminotransferase (ALT/SGPT) 33 U/L (10-53) Total Bilirubin 0.4 MG/DL (0.2-1.0) Sodium Level 149 MEQ/L (136-145) Potassium Level 3.0 MEQ/L (3.5-5.1) Chloride Level 116 MEQ/L (98-107) Carbon Dioxide Level 24.8 MEQ/L (21.0-32.0) Anion Gap 8 MEQ/L (5-15) Estimat Glomerular Filtration Rate 110 ML/MIN (>89) Result Diagram: 09/12/17 0533 09/12/17 0533 Microbiology Microbiology Date/Time Source Procedure Growth Status 09/10/17 12:50 Sputum Endotracheal Gram Stain - Final Complete 09/10/17 12:50 Sputum Endotracheal Sputum Culture - Final MODERATE GROWTH NORMAL RESPIRATORY MORALES Complete Imaging Last Impressions Chest X-Ray 09/12/17 0600 Signed Impressions: Service Date/Time: Tuesday, September 12, 2017 04:28 - CONCLUSION: 1. Subsegmental basilar air space disease increased on the left since September 11. Endotracheal tube and nasogastric tube unchanged. Raman Gilmore MD Head CT 09/10/17 0000 Signed Impressions: Service Date/Time: Sunday, September 10, 2017 09:32 - CONCLUSION: Diffuse sulcal effacement and loss of holley-white matter differentiation concerning for diffuse edema. The ventricles are still patent. There is preservation of the sulci identified within the superior convexities. Sequelae are likely secondary to anoxia. Amber Olson MD Aorta CTA 09/10/17 0000 Signed Impressions: Service Date/Time: Sunday, September 10, 2017 09:39 - CONCLUSION: 1. No evidence of PE or aortic dissection. 2. Appropriate positioned lines and tubes. 3. No acute abnormality seen.. Amber Olson MD Assessment and Plan Disease Oriented Problem List: (1) Community acquired pneumonia (2) Acute respiratory failure with hypoxia (3) Chronic obstructive pulmonary disease (4) PEA (Pulseless electrical activity) (5) Mediastinal widening (6) Lactic acidemia (7) Anoxic brain damage (8) Anoxic cerebral edema Symptom Scale: (1) Dyspnea 0-10 Scale: Unable to quantify (2) Encephalopathy 0-10 Scale: Unable to quantify Pertinent Non-Medical Issues Psychosocial:Lives at home with her . Originally from [place] though has lived here for most of her life. Supported by multiple extended family members as well. 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 Spiritual:Religious court, their personal legal aid has been in with patient and family they does not desire hospital laundry sorter at this time. Legal:Patient unable to participate in decision-making likely suffered anoxic brain injury. Does not have advanced directives. Per [place] statutes would be appropriate legal proxy. Ethical issues impacting care: No ethical issues identified Important Contacts Sinan Philip [phone] . Prognosis This patient suffered out of hospital PEA arrest believed to be secondary to respiratory failure. Has likely sustained severe anoxic brain injury. Chances of meaningful neurologic recovery are minimal. . Code Status: Alternative Code (Intubation only) Plan Legal decision maker:Patient unable to participate in decision-making likely suffered anoxic brain injury. Does not have advanced directives. Per [place] statutes would be appropriate legal proxy. Goals: awaiting daughter to arrive from [place] later today, will likely want to withdraw life support and transition to comfort focus. (* likely around 4pm) 1600-- f/up with nursing-- family flight delayed, not expected to arrive here until 6pm++, withdrawal probable after family is here and has had time to see pt. (?7-8pm) exhibits b,c in chart. CODE STATUS: ALT code intubation only. /proxy requested no pressors, if patient becomes bradycardic or hypotensive to allow her to pass naturally. SYMPTOMS: --Encephalopathy-status post PEA arrest at home secondary to respiratory arrest. CT with cerebral edema likely anoxic brain injury. EEG also consistent with anoxic brain injury. Nonresponsive to clinical exam on no sedation. repeat EEG =Flat line appearing EEG suggestive of severe cortical injury --Dyspnea-Combi tube placed in the field, change to ET tube in the emergency department, remains on mechanical vent not expected to be able to medically extubate in current state. Long history of COPD. reports congestion and shortness of breath in the 3 days leading up to the day of arrest. Palliative care will continue to follow during hospital course as condition evolves, to assist patient/decision-maker with understanding of medical conditions, weighing benefits/burdens of treatment options, for clarification of goals of treatment. Additionally will assist with any symptoms of palliative concern Time Spent Total Floor Time (mins): 35 (chart review, PE, d/w family, d/w nursing, critical care) Attestation To help prompt me to consider important information that might be impacting today's encounter and assessment, information from prior notes written by myself or my colleagues may have been "brought forward" into today's note. My signature on this note, however, is an attestation that I personally performed the exam, history, and/or decision-making noted today, and, unless otherwise indicated, the interactions with patient, family, and staff as well as the review of records all occurred today. I also attest that the listed assessment and stated plan reflect my best clinical judgment today based on the combination of historical information, prior notes, and today's exam/ interactions. When time spent is documented, it refers only to time spent today by the signer, or if indicated, combined time spent today by collaborating physician/nurse practitioner. Katelyn Springer September 13, 2017 10:23
[2017-09-13] MEDS: AZITHROMYCIN INJ 500 MG in SODIUM CHLOR 0.9% 250 ML INJ 250 ML IV SCH (11:00)
[2017-09-13] MEDS ORDERED: PHARMACY ORDERED LAB ONE ×2 (11:45→23:45)
[2017-09-13] MEDS: VANCOMYCIN INJ 1,250 MG in SODIUM CHLOR 0.9% 250 ML INJ 250 ML IV SCH (11:50)
[2017-09-13] MEDS: THIAMINE INJ 100 MG in SODIUM CHLORIDE 0.9% INJ 100 ML IV SCH (13:00)
--- NOTE | 2017-09-13 14:27 | HHI.CCPN ---
Subjective Remarks/Hospital Course Patient is a 67-year-old female with past medical history significant for severe COPD on home oxygen, continued tobacco abuse, questionable history of pulmonary embolism in the past who was brought into the emergency department after sustaining a PEA cardiac arrest. According to the patient had been increasingly short of breath for the last few days particularly was since yesterday. She refused to go to her physician. Today while taking a breathing treatment she suddenly collapsed and became unresponsive. Her started CPR and called 911 and when paramedics arrived the patient was in PEA cardiac arrest. CPR was initiated and Combi tube was placed. The patient received 4 rounds of epinephrine and 2 amps of sodium bicarb with ROSC in the field. In the ED Combitube was replaced with endotracheal tube, and after intubation the patient was noted to be pulseless. CPR was initiated, the patient was provided 1 amp of epinephrine and 1 amp of sodium bicarb with ROSC. Lab work showed mostly CBC and chemistry unremarkable, lactic acid was 13.6, blood sugar was 234. ABG in the ER showed 7.07/68/313. Chest x-ray showed questionable mediastinal widening. CT angiogram of the thorax ruled out any dissection and also pulmonary embolism was ruled out as she has history of PE but a previous H& P. CT of the brain showed diffuse cerebral edema consistent with severe anoxic brain injury I evaluated the patient in the ICU. With propofol turned off patient does not have spontaneous eye opening or any spontaneous movements. No response to painful stimuli. Pupillary reaction is sluggish. To deep visceral pain that is no withdrawal. I discussed with patients and stepson I explained to them I do not recommend induced hypothermia for neuro protection due to the evidence of irreversible anoxic brain injury on CAT scan, and also due to the fact that it is a primary respiratory arrest. They expressed good understanding however wants to continue supportive care for 24-48 hours to see whether this is an improvement.. Patient had been placed on scheduled IV Solu- Medrol, scheduled breathing treatments, and empiric cefepime. I believe the respiratory arrest/hypercapnia led to the PEA cardiac arrest. SUBJ 09/11/17: Patient remains severely encephalopathy. No response to painful stimuli no corneals no pupillary reflex. Trey high fever 102.4. Pancultures sent are pending at this time. and stepson at the bedside updated. Patient remains critical with minimal chance of meaningful neurological recovery. EEG shows background showed diffuse attenuation, low-amplitude consistent with delta waves only. Most likely secondary to severe anoxic brain injury. 09/12: Remains orally intubated on mechanical ventilation. No change in neurologic status. Remains encephalopathic with severe anoxic brain injury. 09/13: Remains encephalopathic, orally intubated on mechanical ventilation. No change in neuro status. Objective Vital Signs Date Time Temp Pulse Resp B/P (MAP) Pulse Ox O2 Delivery O2 Flow Rate FiO2 09/13/17 12:38 92 80 09/13/17 08:00 58 09/13/17 08:00 94.5 18 88/51 (63) 09/10/17 09:03 Ventilator Intake and Output 09/13/17 09/13/17 09/14/17 08:00 16:00 00:00 Intake Total 1482.5 ml Output Total 1600 ml Balance -117.5 ml Result Diagram: 09/12/17 0533 09/12/[address] head shows diffuse cerebral edema consistent with anoxic brain injury Objective Remarks GENERAL: 67-year-old female who is comatose unresponsive SKIN: Warm and dry HEAD: Atraumatic. Normocephalic. EYES: Pupils equal, 3mm, nonreactive. No corneal reflex ENT: Orotracheally intubated. No cough or gag NECK: Trachea midline. No JVD. CARDIOVASCULAR: S1-S2 regular, no gallop or murmur RESPIRATORY: No spontaneous respirations. Combitube in place. GASTROINTESTINAL: Abdomen distended. Tympanic MUSCULOSKELETAL: No obvious deformities. No clubbing. NEUROLOGICAL: GCS 3T. Pupils equal, 3mm, nonreactive. No corneal reflex. No withdrawal to deep visceral pain. No spontaneous eye opening, no spontaneous movements. A/P Assessment and Plan NEURO: Acute anoxic brain injury Severe encephalopathy secondary to anoxia -CT of the head shows evidence of anoxic brain injury -EEG shows background showed diffuse attenuation, low-amplitude consistent with delta waves only. Most likely secondary to severe anoxic brain injury -Family wants to give the patient 24-48 hours, also request neurology opinion -Due to poor neuro exam, primary respiratory arrest and evidence of cerebral edema, severe anoxic injury patient is deemed not a candidate for induced hypothermia -Supplement thiamine -Toxicology screen negative RESP: Acute hypercarbic and hypoxemic respiratory failure Acute COPD exacerbation, without evidence of pneumonia -Continue mechanical ventilation PRVC/AC mode -DuoNeb every 6 hours scheduled and as needed -IV Solu-Medrol 60 mg every 8 hours -Empiric cefepime. Add Flagyl to cover for aspiration, single dose of vancomycin -Follow-up sputum culture -Unable to perform SBT or extubation due to severe encephalopathy CV: PEA arrest Elevated troponin Acute metabolic acidosis -Cardiac arrest secondary to severe respiratory acidosis, respiratory arrest -Troponin elevation could be secondary to cardiac arrest. Start aspirin Coreg -No indication for cardiology consult due to poor neurological status, anoxic brain injury -Limited bedside echo preserved LV function, no evidence of significant pericardial effusion -CT angiogram chest negative for aortic dissection -Patient is hypertensive now use as needed hydralazine avoid beta blockers at this time due to PEA arrest -Normal saline s/p 2 L bolus and 75 ml per hour GI: Mild transaminitis -N.p.o., IV famotidine -Start tube feeds with Jevity : -Monitor renal function closely. Noriega catheter. -IV hydration as above ID: Fever leukocytosis Sepsis -Empiric cefepime for COPD exacerbation. Flagyl to cover for aspiration, give single dose of Vanco -Follow-up on blood urine and sputum cultures HEME: Macrocytosis -Monitor CBC, CMP, coags ENDO: Hypernatremia Hyperglycemia -Electrolyte replacement per protocol -Sliding scale insulin for hyperglycemia PROPH: -Bilateral lower extremity SCDs. Lovenox/Pepcid LINES: -Utilize peripheral IVs, central line if needed CC time 35 min Patient remains critically ill with acute encephalopathy severe anoxic brain injury. CT of the head and EEG consistent with anoxic brain injury. Family has decided regarding proceeding with terminal wean and transition to comfort measures only later today. Palliative care following. Chito Lopez MD September 13, 2017 14:27
[2017-09-13] MEDS ORDERED: LORazepam 2 MG/ML VIAL IV PUSH ONE ×2 (17:15→17:30)
[2017-09-13] MEDS ORDERED: HYOSCYAMINE 0.5 MG/ML AMP IV PUSH ONE (17:15)
[2017-09-13] MEDS ORDERED: MORPHINE SULFATE 8 MG/ML INJ IV PUSH ONE (17:15)
[2017-09-13] MEDS ORDERED: MORPHINE SULFATE 4 MG/ML INJ IV PUSH ONE (17:30)
[2017-09-13] MEDS ORDERED: LORazepam 2 MG/ML VIAL IV PUSH PRN ×3 (17:45)
[2017-09-13] MEDS ORDERED: MORPHINE SULFATE 4 MG/ML INJ IV PUSH PRN (17:45)
[2017-09-13] MEDS ORDERED: MORPHINE SULFATE 8 MG/ML INJ IV PUSH PRN (17:45)
[2017-09-13] MEDS ORDERED: HYOSCYAMINE 0.5 MG/ML AMP IV PUSH PRN (17:45)
[2017-09-13] MEDS ORDERED: LORazepam 2 MG/ML VIAL IV PUSH SCH (20:00)
[2017-09-13] MEDS ORDERED: MORPHINE SULFATE 4 MG/ML INJ IV PUSH SCH (20:00)
== END 2017-09-13 19:09 | disposition expired | DRG 208 ==
LOC: NEPE 08:02 → NEDA 09:29 → HIMW 09:55
PROVIDERS: ADMIT Internal Medicine; ATTEND Internal Medicine
PROC: 5A1945Z Respiratory Ventilation, 24-96 Consecutive Hours (ICD-10-PCS; principal; 2017-09-10)
PROC: 5A12012 Performance of Cardiac Output, Single, Manual (ICD-10-PCS; 2017-09-10)
PROC: 0BH17EZ Insertion of Endotracheal Airway into Trachea, Via Natural or Artificial Opening (ICD-10-PCS; 2017-09-10)
DX: J96.01 Acute respiratory failure with hypoxia (principal); I46.9 Cardiac arrest, cause unspecified; G93.6 Cerebral edema; G93.1 Anoxic brain damage, not elsewhere classified; A41.9 Sepsis, unspecified organism; I95.9 Hypotension, unspecified; E87.0 Hyperosmolality and hypernatremia; J44.1 Chronic obstructive pulmonary disease with (acute) exacerbation; E87.2 Acidosis; Z99.81 Dependence on supplemental oxygen; J96.02 Acute respiratory failure with hypercapnia; I10 Essential (primary) hypertension; E03.9 Hypothyroidism, unspecified; R74.0 Nonspecific elevation of levels of transaminase and lactic acid dehydrogenase [LDH]; D75.89 Other specified diseases of blood and blood-forming organs; R73.9 Hyperglycemia, unspecified; R00.1 Bradycardia, unspecified; M19.90 Unspecified osteoarthritis, unspecified site; F17.210 Nicotine dependence, cigarettes, uncomplicated; F41.9 Anxiety disorder, unspecified; Z51.5 Encounter for palliative care; Z66 Do not resuscitate; Z86.711 Personal history of pulmonary embolism; Z88.5 Allergy status to narcotic agent; Z96.641 Presence of right artificial hip joint
CPT/HCPCS: 36600; 70450; 71045; 71275; 74174; 80053; 80307; 81001; 82550; 82552; 82607; 82805; 82948; 83605; 83735; 84443; 84484; 85007; 85025; 85027; 85610; 85730; 87040; 87070; 87086; 87205; 87641; 93005; 93306; 94002; 94003; 94640; 94664; 95819; J0360; J0456; J0692; J1650; J1815; J1980; J2060; J2270; J2930; J3370; J3411; J7030; J7050; Q9967